=== PATIENT | female | born 1935 | race Caucasian/White ===

== ENCOUNTER 2023-06-09 09:48 | Emergency (ER) | payer MEDICARE, BC, SELFPAY ==
[2023-06-09] VITALS (8 sets, daily range): BP systolic 136–195; BP diastolic 67–88; PULSE 61–95; RESP 20; TEMP 37.3; O2SAT 95–98; BMI 22.5
[2023-06-09 10:45] LABS: Appearance Urine Clear (Clear); Bilirubin Urine Negative (Negative); Blood Urine Trace-lysed (Negative); Color Urine Yellow (Yellow); Glucose Urine Negative (Negative); Ketones Urine Negative (Negative); Leukocyte Esterase Urine Negative (Negative); Nitrite Urine Negative (Negative); Protein Urine Negative (Negative); Specific Gravity Urine 1.015 (1.000-1.030); Urobilinogen Urine 0.2 (0.2-1.0)
--- NOTE | 2023-06-09 10:59 | ED.GENADULT ---
HPI - General Adult General Chief complaint: Weakness Stated complaint: high BP, headache, shaky Time Seen by Provider: 06/09/23 10:45 History of Present Illness HPI narrative: This 87-year-old female comes in with complaints of occasional headache and feeling shaky with increased blood pressure. This is been happening over the past week or 2. She states that she does not feel right and has been under increased stress recently. She reports that her brother a couple weeks ago. She is also taking care of her who has an ankle fracture. She does report increased urinary frequency recently. She does not report any pain or fever. She takes lisinopril and arrives with initial blood pressure at 195/88. At the time of my visit this systolic value reduced to 136. Related Data Home Medications Medication Instructions Recorded Confirmed levothyroxine 100 mcg tablet 100 mcg PO DAILY 06/09/23 06/09/23 lisinopril 10 mg tablet 10 mg PO DAILY 06/09/23 06/09/23 omeprazole 20 mg capsule,delayed 20 mg PO DAILY 06/09/23 06/09/23 release pyridostigmine bromide .ROUTE 06/09/23 Previous Rx's Medication Instructions Recorded lorazepam 0.5 mg tablet (Ativan) 0.5 mg PO BID PRN #15 tabs 06/09/23 Allergies Allergy/AdvReac Type Severity Reaction Status Date / Time No Known Drug Allergies Allergy Verified 06/09/23 10:08 Review of Systems Status of ROS: Reports: 10 or more systems reviewed and unremarkable except as noted in History and below Narrative: Constitutional: No fevers, no weight gain or loss. Eyes: No discharge. No vision changes. HENT: No congestion, no sore throat, no ear pain. Cardiovascular: No chest pain, no palpitations. Respiratory: No shortness of breath, no wheezes, no cough. Gastrointestinal: No abdominal pain, no vomiting, no diarrhea. Genitourinary: No dysuria, no hematuria. Musculoskeletal: Normal range of motion. Skin: No rashes, no pruritis. Neurological: No dizziness, weakness, sensory change, speech change. Endo/Heme/Allergies: No bruising or bleeding. No polydipsia. Pysch: no suicidality, no anxiety, no insomnia. All other systems reviewed and are negative. Exam Narrative: Exam Narrative: Constitutional: Well-developed, well-nourished, no acute distress. HEENT: Normocephalic, atraumatic. Neck: Normal range of motion. Nontender. Supple. Heart: Regular. No murmurs. Normal rate. Intact distal pulses. Lungs: Clear to auscultation. No chest discomfort. No wheezes, rhonchi, or rales. Abdomen: Normal bowel sounds. Nontender. No rebound tenderness. Genitalia: Deferred. Back: No midline tenderness. Normal range of motion. Extremities: Normal range of motion. No injury. Skin: Intact. No rash. Warm. No erythema or pallor. Neurologic: No altered sensation. No weakness. Alert and oriented. Psychiatric: No suicidality. No anxiety or depression. No insomnia. Nursing notes and vitals signs are reviewed. Const: Vital Signs, click to edit/add: Vital Signs - 24 hr 06/09/23 10:04 06/09/23 10:45 06/09/23 11:00 Temperature 99.1 F Pulse Rate 68 Pulse Rate [Pulse Oximeter] 95 Respiratory Rate 20 Blood Pressure [Ri ght Upper Arm] 195/88 H 136/67 Pulse Oximetry 97 97 Oxygen Delivery Me thod Room Air Course Vital Signs Vital signs: Initial Vital Signs Temperature 99.1 F 06/09/23 10:04 Temperature Source Temporal Artery Scan 06/09/23 10:04 Pulse Rate 95 06/09/23 10:04 Respiratory Rate 20 06/09/23 10:04 Blood Pressure 195/88 H 06/09/23 10:04 Blood Pressure Mean 123 H 06/09/23 10:04 Blood Pressure Position Sitting 06/09/23 10:04 Pulse Oximetry 97 06/09/23 10:04 Oxygen Delivery Method Room Air 06/09/23 10:04 Vital Signs Temperature 99.1 F 06/09/23 10:04 Pulse Rate 95 06/09/23 10:04 Respiratory Rate 20 06/09/23 10:04 Blood Pressure 195/88 H 06/09/23 10:04 Pulse Oximetry 97 06/09/23 10:04 Oxygen Delivery Method Room Air 06/09/23 10:04 Temperature 99.1 F 06/09/23 10:04 Pulse Rate 68 06/09/23 11:00 Respiratory Rate 20 06/09/23 10:04 Blood Pressure 136/67 06/09/23 10:45 Pulse Oximetry 97 06/09/23 11:00 Oxygen Delivery Method Room Air 06/09/23 10:04 Medical Decision Making MDM Narrative Medical decision making narrative: This patient comes in with mild headache and some feeling of anxiety with shaking episodes. She has increased stress recently with the passing of her brother and extra care needed for her currently. She arrives with normal vital signs and lab results an EKG also are reassuring. She did have some increased urinary frequency last night but her urinalysis shows no sign of infection. It seems that this patient's symptoms are more related to anxiety and adjustment reaction with recent changes in her family relationships. She is okay to be discharged home. I did provide few tablets of Ativan that can be used if needed for anxiety symptoms. She understands that this is not a long-term solution for her symptoms. Lab Data Labs: Lab Results 06/09/23 06/09/23 Range/Units 10:30 11:11 WBC 7.98 (4.50-11.00) K/uL RBC 4.89 (4.00-5.20) m/uL Hgb 14.1 (12.0-16.0) gm/dL Hct 44.8 (33.0-51.0) % MCV 92 (80-100) fL MCH 29 (26-34) pg MCHC 32 (32-36) gm/dL RDW Coeff of Theodore 13.1 (11.5-15.5) % Plt Count 178 (140-440) K/uL Neut % (Auto) 46.2 (42.0-72.0) % Lymph % (Auto) 42.5 (20-44) % [place] % (Auto) 9.4 (0.0-11.0) % Eos % (Auto) 1.4 (0.0-7.0) % Baso % (Auto) 0.5 (0.0-3.0) % Neut # (Auto) 3.69 (1.7-7.0) K/uL Lymph # (Auto) 3.39 H (0.90-2.90) K/uL [place] # (Auto) 0.80 (0.00-0.90) K/UL Eos # (Auto) 0.11 (0.00-0.50) K/uL Baso # (Auto) 0.04 (0.00-0.30) K/uL Abs Immat Gran (auto) 0.00 (0.00-0.30) K/uL Imm/Tot Granulo (auto) 0.0 % Sodium 141 (135-149) mmol/L Potassium 4.2 (3.6-5.1) mmol/L Chloride 108 (96-114) mmol/L Carbon Dioxide 29 (20-32) mmol/L Anion Gap 4 L (7-15) mEq/L BUN 20 (7-30) mg/dL Creatinine 0.8 (0.5-1.5) mg/dL Estimated Creat Clear 37.01 Estimated GFR 72 ml/min Glucose 94 (60-115) mg/dL Calcium 9.1 (8.4-10.6) mg/dL Urine Color Yellow (Yellow) Urine Appearance Clear (Clear) Urine pH 7.0 (5.0-8.5) Ur Specific [place] 1.015 (1.000-1.030) Urine Protein Negative (Negative) Urine Glucose (UA) Negative (Negative) Urine Ketones Negative (Negative) Urine Blood Trace-lysed A (Negative) Urine Nitrite Negative (Negative) Urine Bilirubin Negative (Negative) Urine Urobilinogen 0.2 (0.2-1.0) Ur Leukocyte Esterase Negative (Negative) Urine RBC 2-5 A (0-2) Urine WBC 2-5 (0-5) Ur Squamous Epith Cells None (None-Few) Amorphous Sediment Few A (None) Urine Bacteria Few A (None) ECG Data Interpretation: Normal sinus rhythm. Rate is 77 beats per minute. There are no ST or T-wave abnormalities. Right bundle branch block. Discharge Plan Discharge Clinical Impression: Anxiety Patient Disposition: Home, Self-Care Condition: Stable Additional Instructions: Take medication as needed and directed. Continue current plans otherwise. Activity as tolerated. Follow up with MD return if worsening. Prescriptions: New lorazepam [Ativan] 0.5 mg tablet 0.5 mg PO BID PRNQty: 15 0RF No Action levothyroxine 100 mcg tablet 100 mcg PO DAILY lisinopril 10 mg tablet 10 mg PO DAILY omeprazole 20 mg capsule,delayed release(DR/EC) 20 mg PO DAILY pyridostigmine bromide .ROUTE Follow Up/Referrals: Starla Greene MD [Primary Care Provider] - Stand Alone Forms: [employer] Info Instructions
[2023-06-09 11:17] LABS: Basophils Absolute Auto 0.04 K/uL (0.00-0.30); Basophils Percent Auto 0.5 % (0.0-3.0); Eosinophils Absolute Auto 0.11 K/uL (0.00-0.50); Eosinophils Percent Auto 1.4 % (0.0-7.0); Hematocrit 44.8 % (33.0-51.0); Hemoglobin* 14.1 gm/dL (12.0-16.0); Lymphocytes Absolute Auto 3.39 K/uL (0.90-2.90); Lymphocytes Percent Auto 42.5 % (20-44); Mean Corpuscular HGB Conc 32 gm/dL (32-36); Mean Corpuscular Hemoglobin 29 pg (26-34); Mean Corpuscular Volume 92 fL (80-100); Monocytes Percent Auto 9.4 % (0.0-11.0); Neutrophils Absolute Auto 3.69 K/uL (1.7-7.0); Neutrophils Percent Auto 46.2 % (42.0-72.0); Platelet Count* 178 K/uL (140-440); RDW Coefficient of Variation % 13.1 % (11.5-15.5); Red Blood Count 4.89 m/uL (4.00-5.20); White Blood Count* 7.98 K/uL (4.50-11.00)
[2023-06-09 11:18] LABS: Amorphous Sediment Urine Few; Bacteria Urine Few
[2023-06-09 11:28] LABS: Chloride* 108 mmol/L (96-114); Sodium* 141 mmol/L (135-149)
[2023-06-09 11:29] LABS: Potassium* 4.2 mmol/L (3.6-5.1)
[2023-06-09 11:31] LABS: Anion Gap 4 mEq/L (7-15); Blood Urea Nitrogen* 20 mg/dL (7-30); Carbon Dioxide* 29 mmol/L (20-32); Creatinine* 0.8 mg/dL (0.5-1.5); Est. Creatinine Clearance* 37.01; Estimated Glomerular Filt Rate 72 ml/min
[2023-06-09 11:32] LABS: Calcium* 9.1 mg/dL (8.4-10.6); Glucose* 94 mg/dL (60-115)
[2023-06-09 11:42] LABS: Slide Review Reflex No
== END 2023-06-09 12:19 | disposition home or self-care (01) ==
PROVIDERS: Emergency Provider Emergency Medicine Emergency Medical Services; PCP Family Medicine
DX: F41.9 Anxiety disorder, unspecified (principal)
CPT/HCPCS: 36415; 80048; 81001; 85025; 87086; 93005; 99284

== ENCOUNTER 2023-10-07 14:54 | Inpatient (IN) | payer MEDICARE, BC, SELFPAY ==
[2023-10-07] VITALS (10 sets, daily range): BP systolic 132–177; BP diastolic 84–126; PULSE 90–133; RESP 18–20; TEMP 36.6–37.3; O2SAT 95–97; BMI 22.6; BMI 24.4
--- NOTE | 2023-10-07 15:33 | ED_ITS ---
HPI - General Adult General Chief complaint: Shortness of Breath/Dyspnea Stated complaint: Shortness of breath, high BP Time Seen by Provider: 10/07/23 15:32 History of Present Illness HPI narrative: Pt reports SOB w/ exertion since July. Contacted her clinic for appointment, but was routed to triage nurse that sent her here. Reports also having a cough at night that is new. Recently has had RIGHT foot swelling. Wears compression stockings to assist with this. 88-year-old woman presenting to the emergency department with concern of shortness of breath and elevated blood pressure. She is telling me this tearfully how just not feeling well has led to her having to cancel attending self a couple of family members. She is also primary caregiver for her who is been seen by myself actually here recently emergency department. Needing significant care at home. She has been having some nocturnal cough. Significant symptoms though is any exertion really is fatiguing. Becomes short of breath. She is also noting some right foot and ankle area swelling. Admittedly has had this before but not to this degree. Definitely more than the left side. Does seem to improve it sounds like overnight and then returns. She is not having chest pain. Not complaining of lightheadedness. Has noted that her blood pressures been elevated as well. I have an EKG showing atrial fibrillation prior to seeing Ms. Reza. This is diagnosis unfamiliar to her. Related Data Home Medications Medication Instructions Recorded Confirmed levothyroxine 100 mcg tablet 100 mcg PO DAILY 06/09/23 10/07/23 lisinopril 10 mg tablet 10 mg PO DAILY 06/09/23 10/07/23 omeprazole 20 mg capsule,delayed 20 mg PO DAILY 06/09/23 10/07/23 release acetaminophen 325 mg tablet 650 mg PO Q6H PRN 10/07/23 10/07/23 aspirin 81 mg capsule 81 mg PO DAILY 10/07/23 10/07/23 calcium carbonate 200 mg calcium 200 mg PO TID PRN 10/07/23 10/07/23 (500 mg) chewable tablet (Tums) calcium carbonate 500 mg calcium 500 mg PO DAILY 10/07/23 10/07/23 (1,250 mg) chewable tablet (Calcium 500) cholecalciferol (vitamin D3) 25 25 mcg PO DAILY 10/07/23 10/07/23 mcg (1,000 unit) capsule (Vitamin D3) multivitamin (One Daily 1 tab PO DAILY 10/07/23 10/07/23 Multivitamin tablet) omega 5-pma-nfj-fish oil 1,000 mg 1 cap PO DAILY 10/07/23 10/07/23 (120 mg-180 mg) capsule (Fish Oil) pyridostigmine bromide 60 mg tablet 60 mg PO 3XD 10/07/23 10/07/23 Allergies Allergy/AdvReac Type Severity Reaction Status Date / Time No Known Drug Allergies Allergy Verified 10/07/23 17:52 Review of Systems Status of ROS: Reports: 6 or more systems reviewed and unremarkable except as noted in History and below [facility] Medical History (Updated 10/08/23 @ 14:03 by Bentley Xiong MD) Subretinal hemorrhage ?H35.60 - Retinal hemorrhage, unspecified eye (ICD-10) 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 (ICD-10) Essential hypertension ?I10 - Essential (primary) hypertension (ICD-10) Myasthenia gravis ?G70.00 - Myasthenia gravis without (acute) exacerbation (ICD-10) Hypothyroidism ?E03.9 - Hypothyroidism, unspecified (ICD-10) Diverticulosis ?K57.90 - Diverticulosis of intestine, part unspecified, without perforation or abscess without bleeding (ICD-10) Surgical History (Updated 10/07/23 @ 21:00 by Belén Iniguez MD) H/O vitrectomy ?Z98.890 - Other specified postprocedural states (ICD-10) History of thymectomy ?Z90.89 - Acquired absence of other organs (ICD-10) Hx of appendectomy ?Z90.49 - Acquired absence of other specified parts of digestive tract (ICD- 10) H/O thyroidectomy ?E89.0 - Postprocedural hypothyroidism (ICD-10) Social History (Updated 10/07/23 @ 20:27 by Belén Iniguez MD) Narrative: Lives with of 60+ years (Maury, would be MDM if needed). Adult children, none in the area. Nonsmoker, rare ETOH use. Amenable to medication resuscitation, requests no CPR or intubation. What is your current living situation?: I presently have a place to live Problems where you live: no known problems Problems where you live details: N/A In the past 12 months, utilities in danger of being shut off: no In past 12 months, lack of transportation kept you from medical appts, meetings, work, or getting things needed for daily living: no In the past 12 mos, have been you worried that your food would run out before you had money to buy more?: never true In the past 12 mos, the food you bought just didn't last and you didn't have money to buy more?: never true Highest level of school completed/degree received: some college, no degree Smoking Status: Never smoker Second hand tobacco smoke exposure: Yes (history) How often do you have a drink containing alcohol: never How often do you have six or more drinks on one occasion: Never AUDIT-C Alcohol total score: 0 Non-prescribed substance use: denies use Caffeine: Yes Are you now , , , , never or living with a partner: Social isolation score (0-1 are the most socially isolated patients): 1 How often does anyone, including family, friends and others, physically hurt you : never How often does anyone, including family, friends and others, insult or talk down to you: never How often does anyone, including family, friends and others, threaten you with harm: never How often does anyone, including family, friends and others, scream or curse at you: never service: No Exam Narrative: Exam Narrative: I pleasant. As noted little tearful in recounting history. Breathing easily at this time. She is well-perfused peripherally. Lower extremities with 1+ pitting pretibial edema right little greater than the left. No pain though. Cranial nerves 2-12 intact. She is breathing easily at rest. Lungs with bibasilar crepitus left greater than right. Equal expansion excursion the chest. Abdomen is protuberant soft nontender. Heart is in a rapid and quite irregularly irregular rhythm. Const: Vital Signs, click to edit/add: Vital Signs - 24 hr 10/07/23 15:17 10/07/23 15:32 10/07/23 16:28 Temperature 98 F Pulse Rate [Left A pical] Pulse Rate [Pulse Oximeter] 133 H Respiratory Rate 18 Blood Pressure 156/97 H 177/126 H Blood Pressure [Ri ght Arm] Blood Pressure [Ri ght Upper Arm] 161/84 H Pulse Oximetry 97 Oxygen Delivery Me thod Room Air 10/07/23 17:00 10/07/23 18:00 Temperature 98.9 F Pulse Rate [Left A pical] 111 H Pulse Rate [Pulse Oximeter] 91 Respiratory Rate 20 Blood Pressure Blood Pressure [Ri ght Arm] 143/95 H Blood Pressure [Ri ght Upper Arm] Pulse Oximetry 97 Oxygen Delivery Me thod Room Air Documenting provider has reviewed patient's vital signs: yes Course Vital Signs Vital signs: Initial Vital Signs Temperature 98 F 10/07/23 15:17 Temperature Source Temporal Artery Scan 10/07/23 15:17 Pulse Rate 133 H 10/07/23 15:17 Pulse Rhythm Regularly Irregular 10/07/23 15:17 Pulse Strength 3+ Normal 10/07/23 15:17 Respiratory Rate 18 10/07/23 15:17 Blood Pressure 161/84 H 10/07/23 15:17 Blood Pressure Mean 109 H 10/07/23 15:17 Blood Pressure Position Sitting 10/07/23 15:17 Pulse Oximetry 97 10/07/23 15:17 Oxygen Delivery Method Room Air 10/07/23 15:17 Vital Signs Temperature 98 F 10/07/23 15:17 Pulse Rate 133 H 10/07/23 15:17 Respiratory Rate 18 10/07/23 15:17 Blood Pressure 161/84 H 10/07/23 15:17 Pulse Oximetry 97 10/07/23 15:17 Oxygen Delivery Method Room Air 10/07/23 15:17 Temperature 97.9 F 10/08/23 11:00 Pulse Rate 120 H 10/08/23 11:00 Respiratory Rate 18 10/08/23 11:00 Blood Pressure 144/87 H 10/08/23 11:00 Pulse Oximetry 97 10/08/23 11:00 Oxygen Delivery Method Room Air 10/08/23 11:00 Medications Administered Medications: Generic Name Dose Route Start Last Admin Trade Name Freq PRN Reason Stop Dose Admin Acetaminophen 975 mg 10/07/23 18:50 10/08/23 11:34 Acetaminophen 325 Mg Tablet PO 975 mg Q8H PRN Administration Apixaban 5 mg 10/07/23 21:00 10/08/23 08:02 Apixaban 5 Mg Tablet PO 5 mg BID JAMIE Administration Aspirin 81 mg 10/08/23 09:00 10/08/23 08:01 Aspirin 81 Mg Tablet Ec PO 81 mg DAILY JAMIE Administration Levothyroxine Sodium 100 mcg 10/08/23 06:00 10/08/23 06:46 Levothyroxine 100 Mcg Tablet PO 100 mcg 0600 JAMIE Administration Metoprolol Tartrate 2.5 mg 10/08/23 11:08 10/08/23 12:21 Metoprolol Tartrate 1 Mg/Ml Inj IVP 2.5 mg Q6H PRN Administration Omeprazole 20 mg 10/08/23 09:00 10/08/23 08:01 [address]epraz[address] PO 20 mg DAILY JAMIE Administration Pyridostigmine [place] 60 mg 10/08/23 08:00 10/08/23 12:49 Pyridostigmine [place] 60 Mg Tablet PO 60 mg TIDWM JAMIE Administration Sodium Chloride 5 ml 10/07/23 18:45 10/07/23 19:25 Sodium Chloride 0.9 % (Flush) 10 Ml Syringe IVF 5 ml .FLUSH PRN Administration Sodium Chloride 5 ml 10/07/23 21:00 10/08/23 09:13 Sodium Chloride 0.9 % (Flush) 10 Ml Syringe IVF Not Given BID JAMIE Discontinued Medications Generic Name Dose Route Start Last Admin Trade Name Freq PRN Reason Stop Dose Admin Diltiazem HCl 10 mg 10/07/23 16:33 10/07/23 16:50 Diltiazem 5 Mg/Ml Inj IVP 10/07/23 16:34 10 mg ONCE ONE Administration Diltiazem HCl 10 mg 10/07/23 18:41 10/07/23 19:24 Diltiazem 5 Mg/Ml Inj IVP 10/07/23 18:42 10 mg ONCE ONE Administration Diltiazem HCl 30 mg 10/08/23 01:00 10/08/23 06:46 Diltiazem 30 Mg Tablet PO 30 mg Q6H JAMIE Administration Diltiazem HCl 120 mg 10/08/23 11:09 10/08/23 11:35 Diltiazem 120 Mg Cap.Er.24h PO 10/08/23 11:10 120 mg ONCE ONE Administration Furosemide 10 mg 10/07/23 20:37 10/07/23 21:03 Furosemide 10 Mg/Ml Inj IVP 10/07/23 20:38 10 mg ONCE ONE Administration Furosemide 20 mg 10/08/23 11:06 10/08/23 11:35 Furosemide 10 Mg/Ml Inj IVP 10/08/23 11:07 20 mg ONCE ONE Administration Sodium Chloride 500 mls @ 500 mls/hr 10/07/23 16:07 10/07/23 17:47 0.9 % Sodium Chloride 500 Ml IV 10/07/23 17:06 Infused .Q1H ONE Infusion Pyridostigmine [place] 60 mg 10/07/23 21:00 10/07/23 19:54 Pyridostigmine [place] 60 Mg Tablet PO 60 mg TID JAMIE Administration Medical Decision Making MDM Narrative Medical decision making narrative: EKG reviewed by me shows atrial fibrillation with RVR. This appears to be of new discovery. Will give low-dose fluid bolus. Will need to use this cautiously. Symptoms seemed to have begun at least as far back as mid July. Would not be a candidate for cardioversion. Will slow this rate a little bit with some diltiazem. Will need chest x-ray. Ultrasound least the right lower extremity looking for thrombus embolus. I would anticipate anticoagulation. I would anticipate admission. Laboratory assessment otherwise is pending. Diltiazem 10 mg a slowed rate 91 briefly but come back up to 1 teens. Look to be in AFib still on monitor. Still remains comfortable at rest blood pressures are still elevated. Chest x-ray has bilateral pleural effusions my read. Study:?XRay Chest 1V-10/07/2023 4:24:10 PM Ordering Physician:?DR. XIONG Final Report: Indication: Shortness of breath, high blood pressure Technique: Portable frontal chest Comparison: PA/lateral chest series December 10, 2022 Findings: The heart is enlarged with moderate-sized bilateral pleural effusions, prominent interstitial markings and vascular congestion. There is no pneumothorax ill- defined focal consolidation. The trachea is midline. Stable postsurgical changes. There are no acute osseous findings. Impression: Findings are compatible with congestive heart failure. Ultrasound as discussed with assistant to the ceo, of the right lower extremity only with Thurman's cyst. Pending formal overread. Have discussed with hospitalist for admission. Accepting. As requested will be scanning chest yet also for PE. Lab Data Lab results reviewed: Yes I reviewed the patient's lab results Labs: Lab Results 10/07/23 Range/Units 15:38 WBC 9.07 (4.50-11.00) K/uL RBC 4.65 (4.00-5.20) m/uL Hgb 13.5 (12.0-16.0) gm/dL Hct 42.4 (33.0-51.0) % MCV 91 (80-100) fL MCH 29 (26-34) pg MCHC 32 (32-36) gm/dL RDW Coeff of Theodore 13.4 (11.5-15.5) % Plt Count 210 (140-440) K/uL Neut % (Auto) 41.0 L (42.0-72.0) % Lymph % (Auto) 46.6 H (20-44) % [place] % (Auto) 9.3 (0.0-11.0) % Eos % (Auto) 2.5 (0.0-7.0) % Baso % (Auto) 0.4 (0.0-3.0) % Neut # (Auto) 3.70 (1.7-7.0) K/uL Lymph # (Auto) 4.20 H (0.90-2.90) K/uL [place] # (Auto) 0.80 (0.00-0.90) K/UL Eos # (Auto) 0.23 (0.00-0.50) K/uL Baso # (Auto) 0.04 (0.00-0.30) K/uL Abs Immat Gran (auto) 0.02 (0.00-0.30) K/uL Imm/Tot Granulo (auto) 0.2 % D-Dimer Quant (PE/DVT) 1.10 H (0.00-0.50) ug/ml Sodium 137 (135-149) mmol/L Potassium 4.4 (3.6-5.1) mmol/L Chloride 109 (96-114) mmol/L Carbon Dioxide 25 (20-32) mmol/L Anion Gap 3 L (7-15) mEq/L BUN 24 (7-30) mg/dL Creatinine 0.8 (0.5-1.5) mg/dL Estimated Creat Clear 37.80 Estimated GFR 72 ml/min Glucose 107 (60-115) mg/dL Calcium 8.8 (8.4-10.6) mg/dL Troponin I < 0.01 L (0.01-0.04) ng/mL NT-Pro-B Natriuret Pep 2900 pg/mL TSH 5.450 H (0.270-4.20) uIU/mL ECG Data Attestation: I personally reviewed and interpreted this ECG as follows: (Atrial fibrillation with RVR rate 136) Critical Care Time Critical Care Time Critical Care Time: Yes Attestation: The patient required my highest level preparedness to intervene emergently and I personally spent this critical care time directly and personally managing the patient. This critical care time included: Obtaining a history; Examining the patient; Pulse oximetry; Ordering and reviewing of studies; Arranging urgent treatment with development of a management plan; Evaluation of patients response to treatment; Frequent reassessment discussions with other providers. This critical care time was performed to assess and manage the high probability of imminent life-threatening deterioration that could result in multiorgan failure. It was exclusive of separate billable procedures and treating other patients and teaching time. Total Critical Care Time in Minutes: 70 Discharge Plan Discharge Clinical Impression: CHF (congestive heart failure), Atrial fibrillation with rapid ventricular response Patient Disposition: Admitted As Inpatient Condition: Stable
--- NOTE | 2023-10-07 16:07 | XR_ITS ---
Patient: CHILANGO WORTHY Facility:?[facility] Patient ID:?[id number] Site Patient ID:?[id number]. Site :?[id number] Study:?XRay-Chest 1V-10/07/2023 4:24:10 PM Ordering Physician:?DR. DE LA ROSA Final Report: Indication: Shortness of breath, high blood pressure Technique: Portable frontal chest Comparison: PA/lateral chest series December 10, 2022 Findings: The heart is enlarged with moderate-sized bilateral pleural effusions, prominent interstitial markings and vascular congestion. There is no pneumothorax ill- defined focal consolidation. The trachea is midline. Stable postsurgical changes. There are no acute osseous findings. Impression: Findings are compatible with congestive heart failure. Dictated by Rui Randall MD @ 10/07/2023 4:53:49 PM Signed by:?Rui Randall MD @10/07/2023 4:53:49 PM (Electronic Signature)
--- NOTE | 2023-10-07 16:07 | US_ITS ---
Patient: CHILANGO WORTHY Facility:?[facility] Patient ID:?[id number] Site Patient ID:?[id number]. Site :?[id number] Study:?US-Extremity Right DVT-10/07/2023 5:23:34 PM Ordering Physician:?ED Final Report: INDICATION: Leg pain and swelling TECHNIQUE: Ultrasound venous duplex lower right extremity. Compression venous exam was performed using davis-scale, color Doppler, and spectral Doppler imaging. COMPARISON: None. FINDINGS: Sonographic imaging demonstrates the right common femoral, deep femoral, superficial femoral, popliteal, posterior tibial and greater saphenous and the contralateral left common femoral veins to be fully compressible with normal color Doppler blood flow. There is a Thurman`s cyst measuring 3.5 centimeters. IMPRESSION: Normal right lower extremity venous ultrasound, no sign of deep venous thrombosis. Thurman`s cyst measuring 3.5 centimeters. Dictated by Farhad Sierra MD @ 10/07/2023 5:51:02 PM Signed by:?Farhad Sierra MD @10/07/2023 5:51:02 PM (Electronic Signature)
[2023-10-07 16:24] LABS: Basophils Absolute Auto 0.04 K/uL (0.00-0.30); Basophils Percent Auto 0.4 % (0.0-3.0); Eosinophils Absolute Auto 0.23 K/uL (0.00-0.50); Eosinophils Percent Auto 2.5 % (0.0-7.0); Hematocrit 42.4 % (33.0-51.0); Hemoglobin* 13.5 gm/dL (12.0-16.0); Immature Granulocytes Abs Auto 0.02 K/uL (0.00-0.30); Immature Granulocytes Pct Auto 0.2 %; Lymphocytes Percent Auto 46.6 % (20-44); Mean Corpuscular HGB Conc 32 gm/dL (32-36); Mean Corpuscular Hemoglobin 29 pg (26-34); Mean Corpuscular Volume 91 fL (80-100); Monocytes Percent Auto 9.3 % (0.0-11.0); Platelet Count* 210 K/uL (140-440); RDW Coefficient of Variation % 13.4 % (11.5-15.5); Red Blood Count 4.65 m/uL (4.00-5.20); White Blood Count* 9.07 K/uL (4.50-11.00)
[2023-10-07 16:27] LABS: Slide Review Reflex No
[2023-10-07 16:33] LABS: Chloride* 109 mmol/L (96-114); Sodium* 137 mmol/L (135-149)
[2023-10-07 16:34] LABS: Potassium* 4.4 mmol/L (3.6-5.1)
[2023-10-07 16:36] LABS: Creatinine* 0.8 mg/dL (0.5-1.5); Estimated Glomerular Filt Rate 72 ml/min
[2023-10-07 16:37] LABS: Anion Gap 3 mEq/L (7-15); Blood Urea Nitrogen* 24 mg/dL (7-30); Calcium* 8.8 mg/dL (8.4-10.6); Carbon Dioxide* 25 mmol/L (20-32); Glucose* 107 mg/dL (60-115)
[2023-10-07] MEDS: 0.9 % SODIUM CHLORIDE 500 ML 500 ML IV (16:41)
[2023-10-07 16:47] LABS: NT Pro B Type NatriureticPept* 2900 pg/mL
[2023-10-07] MEDS: dilTIAZem 5 MG/ML inj 10 MG IVP ×2 (16:50→19:24)
--- NOTE | 2023-10-07 17:14 | CT_ITS ---
Patient: CHILANGO WORTHY Facility:?[facility] Patient ID:?[id number] Site Patient ID:?[id number]. Site :?[id number] Study:?CT-Chest PE PROTOCOL W/ 95CC IOSVUE 370-10/07/2023 5:51:18 PM Ordering Physician:KATHI Final Report: Indication: NEW A-FIB, HEART FAILURE Technique: CTA chest, pulmonary embolism protocol, utilizing 95 mL Isovue 370 Comparison: None Findings: Cardiomegaly. No significant pericardial effusion. Coronary artery calcifications. The thoracic aorta and pulmonary artery are normal in caliber. No pulmonary embolism. Minimal biapical pleural/parenchymal scarring. Moderate right and small volume left pleural effusions with adjacent atelectatic lung at the lung bases. Otherwise, no focal airspace consolidation. Faint mosaic attenuation with interlobular septal thickening in the lung bases, suggestive of edema. The airways are patent. No pathologically enlarged lymph nodes throughout the thorax. The visualized upper abdomen is without acute process. Small to moderate hiatal hernia. Likely large cysts in the bilateral kidneys, incompletely characterized on this exam. No acute fracture or malalignment. No suspicious osseous lesions. Prior median sternotomy. Impression: 1. No pulmonary embolism. 2. Cardiomegaly. 3. Some interlobular septal thickening with mosaic attenuation in the bilateral lung bases, likely secondary to pulmonary edema with a moderate right and small volume left pleural effusion. Please note that all CT scans at this facility use dose modulation, iterative reconstruction, and/or weight-based dosing when appropriate to reduce radiation dose to as low as reasonably achievable. Dictated by Ld Miller MD @ 10/07/2023 6:19:42 PM Signed by:?Ld Miller MD @10/07/2023 6:19:42 PM (Electronic Signature)
--- NOTE | 2023-10-07 17:57 | P.IMHP_ITS ---
Hospitalist- H&P: HPI History of Present Illness Date Seen: 10/07/23 Chief complaint: Shortness of breath, high BP Narrative: Cele Reza is a 88 year old female who presented to the ED today at the behest of her PCP's triage nurse. Cele has felt poorly since July, with primary symptoms of fatigue and HORVATH. She has not noted any significant chest pain or orthopnea. + LE edema, R>L. She was too dyspneic to travel to her [place] last week. Given length of symptoms, she called her PCP's office today to make an appointment, and was directed to the ED. ER Course and Findings: - a fib with RVR on initial EKG, no hypoxia - heart rate decreased from 130s --> 110s after IV Diltiazem - no hypotension - no DVT on RLE ultrasound - evidence of fluid overload on CXR - cardiomegaly, no PE, pulmonary edema with small B pleural effusions on CTA of chest Upon arrival to the floor, Cele is feeling significantly better with her lower heart rate. She is amenable to initiating anticoagulation for her new atrial fibrillation diagnosis. Medical histories updated below. PCP is Dr. Greene locally. 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 (ICD-10) Essential hypertension ?I10 - Essential (primary) hypertension (ICD-10) Myasthenia gravis ?G70.00 - Myasthenia gravis without (acute) exacerbation (ICD-10) Hypothyroidism ?E03.9 - Hypothyroidism, unspecified (ICD-10) Diverticulosis ?K57.90 - Diverticulosis of intestine, part unspecified, without perforation or abscess without bleeding (ICD-10) Surgical History (Updated 10/07/23 @ 21:00 by Belén Iniguez MD) H/O vitrectomy ?Z98.890 - Other specified postprocedural states (ICD-10) History of thymectomy ?Z90.89 - Acquired absence of other organs (ICD-10) Hx of appendectomy ?Z90.49 - Acquired absence of other specified parts of digestive tract (ICD- 10) H/O thyroidectomy ?E89.0 - Postprocedural hypothyroidism (ICD-10) Social History (Updated 10/07/23 @ 20:27 by Belén Iniguez MD) Narrative: Lives with of 60+ years (Maury, would be MDM if needed). Adult children, none in the area. Nonsmoker, rare ETOH use. Amenable to medication resuscitation, requests no CPR or intubation. What is your current living situation?: I presently have a place to live Problems where you live: no known problems Problems where you live details: N/A In the past 12 months, utilities in danger of being shut off: no In past 12 months, lack of transportation kept you from medical appts, meetings, work, or getting things needed for daily living: no In the past 12 mos, have been you worried that your food would run out before you had money to buy more?: never true In the past 12 mos, the food you bought just didn't last and you didn't have money to buy more?: never true Highest level of school completed/degree received: some college, no degree Smoking Status: Never smoker Second hand tobacco smoke exposure: Yes (history) How often do you have a drink containing alcohol: never How often do you have six or more drinks on one occasion: Never AUDIT-C Alcohol total score: 0 Non-prescribed substance use: denies use Caffeine: Yes Are you now , , , , never or living with a partner: Social isolation score (0-1 are the most socially isolated patients): 1 How often does anyone, including family, friends and others, physically hurt you : never How often does anyone, including family, friends and others, insult or talk down to you: never How often does anyone, including family, friends and others, threaten you with harm: never How often does anyone, including family, friends and others, scream or curse at you: never service: No Meds Home Medications and Allergies Home Medications Medication Instructions Recorded Confirmed Type levothyroxine 100 mcg tablet 100 mcg PO DAILY 06/09/23 10/07/23 History lisinopril 10 mg tablet 10 mg PO DAILY 06/09/23 10/07/23 History omeprazole 20 mg capsule,delayed 20 mg PO DAILY 06/09/23 10/07/23 History release acetaminophen 325 mg tablet 650 mg PO Q6H PRN 10/07/23 10/07/23 History aspirin 81 mg capsule 81 mg PO DAILY 10/07/23 10/07/23 History calcium carbonate 200 mg calcium 200 mg PO TID PRN 10/07/23 10/07/23 History (500 mg) chewable tablet (Tums) calcium carbonate 500 mg calcium 500 mg PO DAILY 10/07/23 10/07/23 History (1,250 mg) chewable tablet (Calcium 500) cholecalciferol (vitamin D3) 25 25 mcg PO DAILY 10/07/23 10/07/23 History mcg (1,000 unit) capsule (Vitamin D3) multivitamin (One Daily 1 tab PO DAILY 10/07/23 10/07/23 History Multivitamin tablet) omega 5-ver-uno-fish oil 1,000 mg 1 cap PO DAILY 10/07/23 10/07/23 History (120 mg-180 mg) capsule (Fish Oil) pyridostigmine bromide 60 mg tablet 60 mg PO 3XD 10/07/23 10/07/23 History Allergies Allergy/AdvReac Type Severity Reaction Status Date / Time No Known Drug Allergies Allergy Verified 10/07/23 17:52 Exam Narrative: Exam Narrative: GEN: Alert and oriented, sitting comfortably in bedside chair, nontoxic and appears younger than stated age HEENT: EOMIs bilaterally, no scleral icterus CV: Irregular rhythm, rate in the 110s during my exam, no concerning mumurs R: Decreased bibasilar breath sounds with fine crackles Ext: wwp, + 1-2 edema BLE Skin: No concerning skin lesions or rashes on exposed skin Neuro: No focal deficits or resting tremor, gait not observed Psych: Appropriate Const: Vital Signs, click to edit/add: Vital Signs - 24 hr 10/07/23 15:17 10/07/23 15:32 10/07/23 16:28 Temperature 98 F Pulse Rate [Pulse Oximeter] 133 H Respiratory Rate 18 Blood Pressure 156/97 H 177/126 H Blood Pressure [Ri ght Upper Arm] 161/84 H Pulse Oximetry 97 Oxygen Delivery Me thod Room Air 10/07/23 17:00 Temperature Pulse Rate [Pulse Oximeter] 91 Respiratory Rate Blood Pressure Blood Pressure [Ri ght Upper Arm] Pulse Oximetry Oxygen Delivery Me thod Hospitalist - H&P: Result Labs Labs: Short CBC 10/07/23 Range/Units 15:38 WBC 9.07 (4.50-11.00) K/uL Hgb 13.5 (12.0-16.0) gm/dL Hct 42.4 (33.0-51.0) % Plt Count 210 (140-440) K/uL BMP 10/07/23 15:38 Sodium 137 Potassium 4.4 Chloride 109 Carbon Dioxide 25 BUN 24 Creatinine 0.8 Glucose 107 Calcium 8.8 Assessment and Plan Assessment and plan (1) Atrial fibrillation with rapid ventricular response: Problem comment: - new finding, likely present since July given symptoms - CHADsVASC score of 4, amenable to initiating Apixaban for stroke prevention - improve HR with Diltiazem; will continue this for now and follow HR on telemetry - TTE ordered Status: Acute (2) Essential hypertension: Problem comment: - hold home dose of Lisinopril as she receives Diltiazem and Lasix Status: Acute (3) Pulmonary edema: Problem comment: - 1 dose of Lasix on admission, follow Is/Os/daily weights - repeat TTE ordered (most recent one from 2022 with results below): Final Impressions: 1. Normal left ventricular size, mildly increased wall thickness, normal global systolic function, calculated EF of 69 %. 2. Right ventricular cavity size is mildly enlarged, global systolic RV function is normal. 3. Mild biatrial enlargement 4. The aortic valve is trileaflet and sclerotic, no stenosis and mild regurgitation. 5. The mitral valve is normal, mild mitral regurgitation. 6. Moderate tricuspid regurgitation with normal estimated right sided cardiac pressures. 7. The bubble study was negative for the detection of an intracardiac shunt. Status: Acute (4) Myasthenia gravis: Problem comment: - Quiescent. On thrice daily Pyridostigmine, will continue this Status: Acute
[2023-10-07] MEDS: SODIUM CHLORIDE 0.9 % (FLUSH) 10 ML SYRINGE 5 ML IVF ×2 (19:25→21:04)
[2023-10-07] MEDS: pyRIDostigmine bromide 60 MG TABLET PO (19:54)
[2023-10-07] MEDS: FUROSEMIDE 10 MG/ML inj IVP (21:03)
[2023-10-07] MEDS: APIXABAN 5 MG TABLET PO (21:04)
[2023-10-07] MEDS: ACETAMINOPHEN 325 MG TABLET 975 MG PO (22:29)
[2023-10-08] MEDS: dilTIAZem 30 MG TABLET PO ×2 (01:05→06:46)
[2023-10-08 01:08] VITALS: BP 138/88; PULSE 115; RESP 18; TEMP 36.9; O2SAT 94
--- NOTE | 2023-10-08 05:40 | PC.NURSE ---
[id number]: Patient friendly and talkative. A&Ox3. Independent in room. SOB w/activity. Remained in a-fib during shift w/HR fluctuating between 85-115. Denies CP. Denies N/V.
[2023-10-08] MEDS: LEVOTHYROXINE 100 MCG TABLET PO (06:46)
[2023-10-08 07:00] VITALS: BP 116/67; PULSE 100; PULSE 103; RESP 16; TEMP 36.9; O2SAT 96
[2023-10-08] MEDS: OMEPRAZOLE 20 MG CAPSULE DR PO (08:01)
[2023-10-08] MEDS: ASPIRIN 81 MG TABLET EC PO (08:01)
[2023-10-08] MEDS: APIXABAN 5 MG TABLET PO ×2 (08:02→20:11)
[2023-10-08] MEDS: pyRIDostigmine bromide 60 MG TABLET PO ×3 (09:06→17:48)
[2023-10-08 09:09] LABS: Troponin I* < 0.01 ng/mL (0.01-0.04)
[2023-10-08 09:10] LABS: Troponin I* < 0.01 ng/mL (0.01-0.04)
[2023-10-08 11:00] VITALS: BP 144/87; PULSE 120; RESP 18; TEMP 36.6; O2SAT 97
[2023-10-08] MEDS: ACETAMINOPHEN 325 MG TABLET 975 MG PO ×2 (11:34→20:11)
[2023-10-08] MEDS: dilTIAZem 120 MG CAP.ER.24H PO (11:35)
[2023-10-08] MEDS: FUROSEMIDE 10 MG/ML inj 20 MG IVP (11:35)
[2023-10-08] MEDS: METOPROLOL TARTRATE 1 MG/ML inj 2.5 MG IVP (12:21)
[2023-10-08 15:00] VITALS: BP 147/95; PULSE 100; RESP 18; TEMP 36.8; O2SAT 95; O2SAT 96
--- NOTE | 2023-10-08 15:41 | PM.IMPN1 ---
Progress Note: A&P Assessment and plan (1) Atrial fibrillation with rapid ventricular response: Problem details: - new finding, likely present since July given symptoms - CHADsVASC score of 4, amenable to initiating Apixaban for stroke prevention - improve HR with Diltiazem; will continue this for now and follow HR on telemetry - TTE on 10/08/2023: Normal LV chamber size, wall thickness, global systolic function, with EF 67%. Mildly enlarged right ventricle with borderline decreased function. Severe left atrial enlargement. 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 Mild aortic regurgitation. Moderate to severe mitral regurgitation. Moderate tricuspid regurgitation. Mild pulmonary hypertension with estimated right ventricular systolic pressures of 28 mmHg plus right atrial pressure. Dilated inferior vena cava. Overall the patient's mitral regurgitation and tricuspid regurgitation are worsen they were in November of 2022 when she last had an echocardiogram. - 10/08/2023: Changed schedule diltiazem 30 mg q.6 hours to diltiazem CD 120 mg once daily. Added as needed metoprolol tartrate 5 mg IV q.6 hours for heart rate consistently greater than 100 beats per minute. Consider dose adjustment of the diltiazem and metoprolol as warranted and as her mean arterial pressure allows. May need to consider digoxin or amiodarone. Discuss referral to Cardiology with her. Introduced the idea of ablation therapy. Continue with apixaban anticoagulation. Status: Acute (2) Essential hypertension: Problem details: - hold home dose of Lisinopril as she receives Diltiazem and Lasix. - continue to modify doses of diltiazem and metoprolol as her pressures allow. Status: Acute (3) Pulmonary edema: Problem details: - 1 dose of Lasix on admission, follow Is/Os/daily weights - repeat TTE ordered (from November 2022 with results below): 1. Normal left ventricular size, mildly increased wall thickness, normal global systolic function, calculated EF of 69 %. 2. Right ventricular cavity size is mildly enlarged, global systolic RV function is normal. 3. Mild biatrial enlargement 4. The aortic valve is trileaflet and sclerotic, no stenosis and mild regurgitation. 5. The mitral valve is normal, mild mitral regurgitation. 6. Moderate tricuspid regurgitation with normal estimated right sided cardiac pressures. 7. The bubble study was negative for the detection of an intracardiac shunt. - TTE on 10/08/2023: Normal LV chamber size, wall thickness, global systolic function, with EF 67%. Mildly enlarged right ventricle with borderline decreased function. Severe left atrial enlargement. 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 Mild aortic regurgitation. Moderate to severe mitral regurgitation. Moderate tricuspid regurgitation. Mild pulmonary hypertension with estimated right ventricular systolic pressures of 28 mmHg plus right atrial pressure. Dilated inferior vena cava. Overall the patient's mitral regurgitation and tricuspid regurgitation are worsen they were in November of 2022 when she last had an echocardiogram. - continue with loop diuretic adjustments. Continue with rate control efforts with negative chronotropic agents diltiazem and metoprolol. Status: Acute (4) Myasthenia gravis: Problem details: - Quiescent. On thrice daily Pyridostigmine, will continue this Status: Acute (5) Valvular cardiomyopathy: Problem details: - moderate to severe mitral regurgitation now compared to moderate mitral regurgitation November 2022 - moderate tricuspid regurgitation now compared to mild tricuspid regurgitation November 2022 - will warrant cardiology referral Status: Acute (6) Cor triatriatum maximiliano: Problem details: - TTE on 10/08/2023: Normal LV chamber size, wall thickness, global systolic function, with EF 67%. Mildly enlarged right ventricle with borderline decreased function. Severe left atrial enlargement. 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 Mild aortic regurgitation. Moderate to severe mitral regurgitation. Moderate tricuspid regurgitation. Mild pulmonary hypertension with estimated right ventricular systolic pressures of 28 mmHg plus right atrial pressure. Dilated inferior vena cava. Overall the patient's mitral regurgitation and tricuspid regurgitation are worsen they were in November of 2022 when she last had an echocardiogram. - warrants cardiology referral Status: Acute (7) CHF (congestive heart failure): Status: Acute Plan 1. Reviewed impression with patient 2. Encourage patient to work with her adoption social worker to discuss options to help her and her in their home 3. Patient agreeable with above stated plans and recommendations Time Spent With Patient Total time spent: 45 minutes Subjective Date Seen: 10/08/23 Interval history: Admission history of present illness: 88 year old female who presented to the ED today at the behest of her PCP's triage nurse. Cele has felt poorly since July, with primary symptoms of fatigue and HORVATH. She has not noted any significant chest pain or orthopnea. + LE edema, R>L. She was too dyspneic to travel to her [facility] last week. Given length of symptoms, she called her PCP's office today to make an appointment, and was directed to the ED. Notes decreased sense of dyspnea at rest. Continues to have dyspnea with exertion. Generally feels a little improved today compared to when she 1st was admitted. Acknowledges she has disregarded caring for herself in the context of attending to her 's needs. Intends on working with family and friends to address her 's needs. Exam Narrative: Exam Narrative: No acute distress. Alert and oriented to self, place, time, situation. From the, articulate, cooperative. Sitting upright she has jugular venous distension long term upper neck. She has hepatojugular reflux up to the angle of the jaw in the sitting upright position. Still has bilateral lower extremity edema. Lungs clear to auscultation with decreased breath sounds in bases. Heart tones are chaotic and tachycardic. Soft murmur across precordium. Abdomen with active bowel sounds, soft, nontender. No focal motor neurologic deficits. Const: Vital Signs, click to edit/add: Vital Signs - 24 hr 10/07/23 16:28 10/07/23 17:00 10/07/23 18:00 Temperature 98.9 F Pulse Rate Pulse Rate [Left A pical] 111 H Pulse Rate [Pulse Oximeter] 91 Pulse Rate [Right Pulse Oximeter] Respiratory Rate 20 Blood Pressure 177/126 H Blood Pressure [Ri ght Arm] 143/95 H Pulse Oximetry 97 Oxygen Delivery Me thod Room Air 10/07/23 19:00 10/07/23 19:46 10/07/23 20:25 Temperature 99.2 F Pulse Rate 120 H Pulse Rate [Left A pical] 122 H Pulse Rate [Pulse Oximeter] Pulse Rate [Right Pulse Oximeter] Respiratory Rate 20 20 Blood Pressure Blood Pressure [Ri ght Arm] 145/96 H Pulse Oximetry 96 Oxygen Delivery Me thod Room Air 10/07/23 22:25 10/07/23 22:38 10/07/23 22:38 Temperature 98.6 F Pulse Rate 90 Pulse Rate [Left A pical] 93 Pulse Rate [Pulse Oximeter] Pulse Rate [Right Pulse Oximeter] Respiratory Rate 20 20 Blood Pressure Blood Pressure [Ri ght Arm] 132/90 H Pulse Oximetry 95 95 Oxygen Delivery Me thod Room Air Room Air 10/08/23 01:08 10/08/23 07:00 10/08/23 07:00 Temperature 98.4 F 98.5 F Pulse Rate 103 H Pulse Rate [Left A pical] 115 H Pulse Rate [Pulse Oximeter] Pulse Rate [Right Pulse Oximeter] 100 Respiratory Rate 18 16 Blood Pressure Blood Pressure [Ri ght Arm] 138/88 116/67 Pulse Oximetry 94 96 Oxygen Delivery Co thod Room Air Room Air 10/08/23 07:00 10/08/23 11:00 Temperature 97.9 F Pulse Rate Pulse Rate [Left A pical] Pulse Rate [Pulse Oximeter] Pulse Rate [Right Pulse Oximeter] 120 H Respiratory Rate 16 18 Blood Pressure Blood Pressure [Ri ght Arm] 144/87 H Pulse Oximetry 96 97 Oxygen Delivery Co thod Room Air Room Air Labs Labs: Laboratory Results - last 24 hr 10/07/23 10/08/23 10/08/23 15:38 08:06 08:25 WBC 9.07 RBC 4.65 Hgb 13.5 Hct 42.4 MCV 91 MCH 29 MCHC 32 RDW Coeff of Theodore 13.4 Plt Count 210 Neut % (Auto) 41.0 L Lymph % (Auto) 46.6 H Jackson % (Auto) 9.3 Eos % (Auto) 2.5 Baso % (Auto) 0.4 Neut # (Auto) 3.70 Lymph # (Auto) 4.20 H Jackson # (Auto) 0.80 Eos # (Auto) 0.23 Baso # (Auto) 0.04 Abs Immat Gran (auto) 0.02 Imm/Tot Granulo (auto) 0.2 D-Dimer Quant (PE/DVT) 1.10 H Sodium 137 Potassium 4.4 Chloride 109 Carbon Dioxide 25 Anion Gap 3 L BUN 24 Creatinine 0.8 Estimated Creat Clear 37.80 Estimated GFR 72 Glucose 107 Calcium 8.8 Troponin I < 0.01 L < 0.01 L NT-Pro-B Natriuret Pep 2900 TSH 5.450 H Lab Acknowledgement Test Added
--- NOTE | 2023-10-08 16:32 | PC.SOCIAL ---
Discharge planning: Met with pt regarding d/c plan. Pt is hoping to return home with her and explore the option of hiring additional assistance for at home. Also discussed options for assisted living which pt states she is interested in but she is concerned her will not want to move. Provided pt written information on these options. Pt requested home health care social worker come back for a second visit when her is present tomorrow afternoon as she wants him to be part of this discussion. traffic worker to follow up as needed.
[2023-10-08 19:00] VITALS: BP 147/95; PULSE 100; RESP 18; TEMP 36.6; O2SAT 94
--- NOTE | 2023-10-08 19:00 | PC.NURSE ---
[id number]: The patient is pleasant and cooperative. VS on RA. The patient remains on tele.. afib w/ NVR and RVR throughout the day. PO dilt, and IV metoprolol were given this afternoon per Dr Vazquez's orders. PRN metoprolol availible for HR >100 sustained for 10 minutes or more. The patient reports mild SOB when she is up ambulating.. she states that it is a lot better than it was prior to coming here. 20mg of IV lasix was also given. Calls appropriately. Reported a moderate headache this afternoon and PRN Tylenol was given with adequate relief. Char MEJIA BSN
[2023-10-08] MEDS: SODIUM CHLORIDE 0.9 % (FLUSH) 10 ML SYRINGE 5 ML IVF (20:12)
[2023-10-08 23:00] VITALS: BP 112/21; PULSE 100; PULSE 69; PULSE 88; RESP 13; RESP 18; TEMP 36.9; O2SAT 93; O2SAT 94
[2023-10-09] VITALS (11 sets, daily range): BP systolic 109–160; BP diastolic 69–93; PULSE 72–126; RESP 16–20; TEMP 36.4–36.6; O2SAT 91–95
[2023-10-09] MEDS: LEVOTHYROXINE 100 MCG TABLET PO (05:46)
--- NOTE | 2023-10-09 05:51 | PC.NURSE ---
End of shift: Patient pleasant and cooperative with cares. Alert and oriented. Shortness of breath reported with exertion but resolves at rest. BLE edema +1 pitting. Independent with ambulation, patient does use walker PRN when feeling short of breath but does not use at baseline. Patient reports difficulty sleeping after 0330, she is feeling anxious over her coming to discuss options of assisted living with social organization professor but is also joyful to see him as she is his primary caregiver at home.
[2023-10-09 06:25] LABS: Hemoglobin* 13.1 gm/dL (12.0-16.0)
[2023-10-09 06:42] LABS: Albumin* 3.6 g/dL (3.3-5.0); Chloride* 111 mmol/L (96-114); Sodium* 137 mmol/L (135-149)
[2023-10-09 06:45] LABS: Anion Gap 1 mEq/L (7-15); Blood Urea Nitrogen* 23 mg/dL (7-30); Carbon Dioxide* 25 mmol/L (20-32); Creatinine* 0.9 mg/dL (0.5-1.5); Estimated Glomerular Filt Rate 62 ml/min; Glucose* 98 mg/dL (60-115)
[2023-10-09 06:46] LABS: Calcium* 8.4 mg/dL (8.4-10.6); Magnesium* 1.9 mg/dL (1.5-2.6)
[2023-10-09] MEDS: METOPROLOL TARTRATE 1 MG/ML inj 2.5 MG IVP (07:17)
[2023-10-09] MEDS: FUROSEMIDE 20 MG TABLET PO ×2 (07:49→09:38)
[2023-10-09] MEDS: pyRIDostigmine bromide 60 MG TABLET PO ×3 (07:50→17:17)
[2023-10-09] MEDS: ASPIRIN 81 MG TABLET EC PO (09:11)
[2023-10-09] MEDS: dilTIAZem 120 MG CAP.ER.24H PO ×2 (09:11→09:38)
[2023-10-09] MEDS: APIXABAN 5 MG TABLET PO ×2 (09:11→20:55)
[2023-10-09] MEDS: OMEPRAZOLE 20 MG CAPSULE DR PO (09:11)
[2023-10-09] MEDS: CALCIUM CARBONATE 500 MG CHEW PO (09:18)
[2023-10-09] MEDS: SODIUM CHLORIDE 0.9 % (FLUSH) 10 ML SYRINGE 5 ML IVF ×2 (09:33→20:56)
--- NOTE | 2023-10-09 15:55 | PM.IMPN1 ---
Progress Note: A&P Assessment and plan (1) Atrial fibrillation with rapid ventricular response: Problem details: - new finding, likely present since July given symptoms - CHADsVASC score of 4, amenable to initiating Apixaban for stroke prevention - improve HR with Diltiazem; will continue this for now and follow HR on telemetry - TTE on 10/08/2023: Normal LV chamber size, wall thickness, global systolic function, with EF 67%. Mildly enlarged right ventricle with borderline decreased function. Severe left atrial enlargement. 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 Mild aortic regurgitation. Moderate to severe mitral regurgitation. Moderate tricuspid regurgitation. Mild pulmonary hypertension with estimated right ventricular systolic pressures of 28 mmHg plus right atrial pressure. Dilated inferior vena cava. Overall the patient's mitral regurgitation and tricuspid regurgitation are worsen they were in November of 2022 when she last had an echocardiogram. - 10/08/2023: Changed schedule diltiazem 30 mg q.6 hours to diltiazem CD 120 mg once daily. Added as needed metoprolol tartrate 5 mg IV q.6 hours for heart rate consistently greater than 100 beats per minute. Consider dose adjustment of the diltiazem and metoprolol as warranted and as her mean arterial pressure allows. May need to consider digoxin or amiodarone. Discuss referral to Cardiology with her. Introduced the idea of ablation therapy. Continue with apixaban anticoagulation. - 10/09/2023: Increase diltiazem CD dose to 240 mg daily. Heart rate much better controlled on this. Patient, (Maury), her power of ip technology transactions attorney for health, Luis, and I believe Luis's , had a long discussion this afternoon. We discuss energy conservation principles. Indicated that patient is not to be walking down to her basement to do her laundry hereafter until she is told that she can safely do so at some future time. Working with Physical therapy, Occupational therapy, and case management social worker to assist with recommendations regarding short-term and long-term support for patient and her including the possibility of home care as well as assisted living. They are agreeable. If patient continues to do well it is possible patient may be in a position to be discharged from the hospital as early as tomorrow. Status: Acute (2) Essential hypertension: Problem details: - hold home dose of Lisinopril as she receives Diltiazem and Lasix. - continue to modify doses of diltiazem and metoprolol as her pressures allow. Status: Acute (3) Pulmonary edema: Problem details: - 1 dose of Lasix on admission, follow Is/Os/daily weights - repeat TTE ordered (from November 2022 with results below): 1. Normal left ventricular size, mildly increased wall thickness, normal global systolic function, calculated EF of 69 %. 2. Right ventricular cavity size is mildly enlarged, global systolic RV function is normal. 3. Mild biatrial enlargement 4. The aortic valve is trileaflet and sclerotic, no stenosis and mild regurgitation. 5. The mitral valve is normal, mild mitral regurgitation. 6. Moderate tricuspid regurgitation with normal estimated right sided cardiac pressures. 7. The bubble study was negative for the detection of an intracardiac shunt. - TTE on 10/08/2023: Normal LV chamber size, wall thickness, global systolic function, with EF 67%. Mildly enlarged right ventricle with borderline decreased function. Severe left atrial enlargement. 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 Mild aortic regurgitation. Moderate to severe mitral regurgitation. Moderate tricuspid regurgitation. Mild pulmonary hypertension with estimated right ventricular systolic pressures of 28 mmHg plus right atrial pressure. Dilated inferior vena cava. Overall the patient's mitral regurgitation and tricuspid regurgitation are worsen they were in November of 2022 when she last had an echocardiogram. - continue with loop diuretic adjustments. Continue with rate control efforts with negative chronotropic agents diltiazem and metoprolol. Status: Acute (4) Myasthenia gravis: Problem details: - Quiescent. On thrice daily Pyridostigmine, will continue this Status: Acute (5) Valvular cardiomyopathy: Problem details: - moderate to severe mitral regurgitation now compared to moderate mitral regurgitation November 2022 - moderate tricuspid regurgitation now compared to mild tricuspid regurgitation November 2022 - will warrant cardiology referral Status: Acute (6) Cor triatriatum maximiliano: Problem details: - TTE on 10/08/2023: Normal LV chamber size, wall thickness, global systolic function, with EF 67%. Mildly enlarged right ventricle with borderline decreased function. Severe left atrial enlargement. 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 Mild aortic regurgitation. Moderate to severe mitral regurgitation. Moderate tricuspid regurgitation. Mild pulmonary hypertension with estimated right ventricular systolic pressures of 28 mmHg plus right atrial pressure. Dilated inferior vena cava. Overall the patient's mitral regurgitation and tricuspid regurgitation are worsen they were in November of 2022 when she last had an echocardiogram. - warrants cardiology referral Status: Acute (7) CHF (congestive heart failure): Problem details: - chronic diastolic heart failure in association with valvular cardiomyopathy and possible cor triatriatum Maximiliano. - continue with adjustment of diltiazem for rate control and blood pressure control as well as furosemide diuretic for now. Continue with monitoring of labs. Status: Acute Plan 1. Patient, , and their support are all in agreement with above stated plans and recommendations. Time Spent With Patient Total time spent: 60 minutes Subjective Date Seen: 10/09/23 Interval history: Admission history of present illness: 88 year old female who presented to the ED today at the behest of her PCP's triage nurse. Cele has felt poorly since July, with primary symptoms of fatigue and HORVATH. She has not noted any significant chest pain or orthopnea. + LE edema, R>L. She was too dyspneic to travel to [place] last week. Given length of symptoms, she called her PCP's office today to make an appointment, and was directed to the ED. Hospital day 3. Notes dyspnea at rest is virtually resolved. Continues to have dyspnea with exertion but this too is improving. Tolerating increased activities today even walking up 4 steps and back down, but does have to rest. Denies syncope or near-syncope. Denies nausea vomiting. Denies chest heaviness or pressure, tightness or pain. Denies palpitations or chest fluttering. Acknowledges she has disregarded caring for herself in the context of attending to her 's needs. Intends on working with family and friends to address her 's needs. Exam Narrative: Exam Narrative: Examine her in her hospital room. Appears comfortable and in no acute distress. Vision and hearing are normal. Alert, oriented to self, place, time, situation. Friendly, cooperative, articulate. Still has JVD while sitting upright as well as hepatojugular reflux. Decreased breath sounds in the bases otherwise lungs are now clear. No CVA tenderness. Heart tones are chaotic with normal S1-S2. Systolic murmur unchanged. No gallop or rub. PMI not laterally displaced. Abdomen with active bowel sounds, soft, nontender. Independent transfer, station, gait. No tremor, asterixis, or ataxia. Cranial nerves 3-12 are grossly normal. Skin is intact. Trace pitting edema pretibially bilaterally. This morning's weight is 67.4 kg. Yesterday morning her weight was 67.9 kg. On admission her weight was 68.9 kg. Const: Vital Signs, click to edit/add: Vital Signs - 24 hr 10/08/23 19:00 10/08/23 23:00 10/08/23 23:00 Temperature 97.9 F Pulse Rate 69 Pulse Rate [Right Pulse Oximeter] 100 100 Respiratory Rate 18 18 Blood Pressure [Ri ght Arm] 147/95 H Pulse Oximetry 94 Oxygen Delivery Me thod Room Air 10/08/23 23:00 10/08/23 23:00 10/09/23 03:00 Temperature 98.4 F 97.6 F Pulse Rate Pulse Rate [Right Pulse Oximeter] 88 91 Respiratory Rate 18 13 18 Blood Pressure [Ri ght Arm] 112/21 L 141/83 H Pulse Oximetry 94 93 92 Oxygen Delivery Sd thod Room Air Room Air Room Air 10/09/23 07:27 10/09/23 07:27 10/09/23 08:11 Temperature 97.9 F Pulse Rate 124 H Pulse Rate [Right Pulse Oximeter] 122 H 126 H Respiratory Rate 16 Blood Pressure [Ri ght Arm] 160/93 H Pulse Oximetry 95 Oxygen Delivery Sd thod Room Air 10/09/23 08:11 10/09/23 09:16 10/09/23 11:05 Temperature 97.8 F Pulse Rate Pulse Rate [Right Pulse Oximeter] 109 H 94 Respiratory Rate 16 20 Blood Pressure [Ri ght Arm] 128/80 124/71 Pulse Oximetry 95 94 Oxygen Delivery Sd thod Room Air Room Air 10/09/23 15:39 10/09/23 15:39 10/09/23 15:43 Temperature 97.9 F Pulse Rate 72 Pulse Rate [Right Pulse Oximeter] 72 Respiratory Rate 18 18 Blood Pressure [Ri ght Arm] 109/69 Pulse Oximetry 91 91 Oxygen Delivery Sd thod Room Air Room Air Labs Labs: Laboratory Results - last 24 hr 10/09/23 06:04 Hgb 13.1 Sodium 137 Potassium 4.0 Chloride 111 Carbon Dioxide 25 Anion Gap 1 L BUN 23 Creatinine 0.9 Estimated Creat Clear 37.80 Estimated GFR 62 Glucose 98 Calcium 8.4 Phosphorus 4.0 Magnesium 1.9 Albumin 3.6
--- NOTE | 2023-10-09 16:23 | PC.SOCIAL ---
Discharge planning: At pt's request, met with pt, and friends in room regarding d/c plans. Pt states she is appreciative of all the information provided yesterday and is planning to contact [employer] after she returns home to discuss hiring assistance. Answered questions on these services and options for hiring help in the community. Pt is interested in signing up for meals on wheels prior to discharge for herself and her if there is currently space on their route. family preservation worker to follow up tomorrow to find out if there is availability and assist pt in signing up if there is availability. family preservation worker to follow up as needed.
--- NOTE | 2023-10-09 17:38 | PC.NURSE ---
Shift Summary: Patient pleasant and cooperative. Up independently, HR and BP elevated this morning around 0720, PRN metoprolol given see SEP. MD made med changes, see SEP, changes have been tolerated well. Patient HR down to 70-90s this afternoon, BP WNL. Patient with +1 pitting edema in ankle/calf, c/o SOB with exertion this morning which has improved throughout day. Has been up in street walking x2. Denies chest pain. Regular diet tolerated well, good appetite. In recliner for meals.
[2023-10-09] MEDS: ACETAMINOPHEN 325 MG TABLET 975 MG PO (20:59)
[2023-10-10 02:45] VITALS: BP 131/90; PULSE 88; RESP 16; TEMP 36.5; O2SAT 94
[2023-10-10] MEDS: LEVOTHYROXINE 100 MCG TABLET PO (06:08)
[2023-10-10 06:22] LABS: Hemoglobin* 13.9 gm/dL (12.0-16.0)
[2023-10-10] MEDS: SODIUM CHLORIDE 0.9 % (FLUSH) 10 ML SYRINGE 5 ML IVF (06:29)
[2023-10-10] MEDS: METOPROLOL TARTRATE 1 MG/ML inj 2.5 MG IVP (06:29)
[2023-10-10 06:35] LABS: Albumin* 3.6 g/dL (3.3-5.0); Chloride* 111 mmol/L (96-114); Potassium* 4.2 mmol/L (3.6-5.1); Sodium* 138 mmol/L (135-149)
[2023-10-10 06:38] LABS: Anion Gap -1 mEq/L (7-15); Blood Urea Nitrogen* 19 mg/dL (7-30); Calcium* 8.6 mg/dL (8.4-10.6); Carbon Dioxide* 28 mmol/L (20-32); Creatinine* 0.9 mg/dL (0.5-1.5); Estimated Glomerular Filt Rate 62 ml/min; Glucose* 91 mg/dL (60-115); Phosphorus* 3.9 mg/dL (2.5-4.5)
[2023-10-10 06:39] LABS: Magnesium* 1.9 mg/dL (1.5-2.6)
--- NOTE | 2023-10-10 07:01 | PC.NURSE ---
Pt alert and oriented x3. Afebrile. Pt denies pain, chest pain, pain, SOB, and N/V.?Pt is up ind in room, voiding, and tolerating regular diet. Pt?s tele is showing atrial fabulation with normal ventricular rhythm.?Around 0615 pt?heart rate was 100-130 bpm for consistent 10 mins, pt denied pain but reported her heart felt ?uncomfortable?, PRN metoprolol given with relief. Pt slept throughout most of night.?
[2023-10-10 08:10] VITALS: PULSE 120
[2023-10-10 08:21] VITALS: BP 137/95; PULSE 103; RESP 16; TEMP 36.5; O2SAT 94
[2023-10-10] MEDS: pyRIDostigmine bromide 60 MG TABLET PO (08:49)
[2023-10-10] MEDS: FUROSEMIDE 40 MG TABLET PO (08:49)
[2023-10-10] MEDS: APIXABAN 5 MG TABLET PO (08:49)
[2023-10-10] MEDS: OMEPRAZOLE 20 MG CAPSULE DR PO (08:49)
[2023-10-10] MEDS: dilTIAZem 240 MG CAP (CD) PO (08:49)
[2023-10-10] MEDS: ASPIRIN 81 MG TABLET EC PO (08:49)
--- NOTE | 2023-10-10 09:41 | PC.SOCIAL ---
Addendum entered by GISSELLE Parson 10/10/23 12:28: Discharge planning: Pt was only interested in signing up for Meals on Wheels for herself and will add her later, if needed. Pt stated that her and her are both very light eaters, so may be able to just share one of the meals. terrazzo worker apprentice gave the pt information on who to contact in the kitchen if she wants to start getting a meal for her . Social work to follow-up as needed. Addendum entered by GISSELLE Parson 10/10/23 12:21: Discharge planning: terrazzo worker apprentice was able to get the pt opened for [facility] program to start on Friday. OT will be scheduling a home safety evaluation with her via phone later today after she discharges. Pt was thankful for the assistance. Social work to follow-up as needed. Original Note: Discharge planning: terrazzo worker apprentice left a message with the kitchen staff to ask about getting the pt added to the Meals on Wheels program. Social work to follow-up as needed.
--- NOTE | 2023-10-10 14:39 | PM.DS1 ---
DS: Providers Provider Date Seen: 10/10/23 Date of admission: 10/07/23 18:45 Primary care physician: Starla Greene MD Admitting Clinician: Belén Iniguez MD Consults: 10/07/23 18:50 Consult to Physical Therapy [CONS] Routine Comment: Reason(s) for PT Consult:: Evaluate and Treat Any Restrictions?:: No Restrictions Consult to Banking Specialist [CONS] Routine Comment: Reason for Consult:: Discharge Planning Needs 10/07/23 18:52 Consult to Occupational Therapy [CONS] Routine Comment: Reason(s) for OT Consult:: Evaluate and Treat Any Restrictions?:: No Restrictions 10/09/23 09:50 Consult to Occupational Therapy [CONS] Routine Comment: Reason(s) for OT Consult:: Evaluate and Treat Any Restrictions?:: No Restrictions Consult to Physical Therapy [CONS] Routine Comment: Reason(s) for PT Consult:: Evaluate and Treat Any Restrictions?:: No Restrictions Attending Physician on discharge: Sean Pickens MD Date of Discharge: 10/10/23 DS: Diagnosis Discharge Diagnosis (1) Atrial fibrillation with rapid ventricular response: Status: Acute Problem details: - new finding, likely present since July given symptoms - CHADsVASC score of 4, amenable to initiating Apixaban for stroke prevention - improve HR with Diltiazem; will continue this for now and follow HR on telemetry - TTE on 10/08/2023: Normal LV chamber size, wall thickness, global systolic function, with EF 67%. Mildly enlarged right ventricle with borderline decreased function. Severe left atrial enlargement. 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 Mild aortic regurgitation. Moderate to severe mitral regurgitation. Moderate tricuspid regurgitation. Mild pulmonary hypertension with estimated right ventricular systolic pressures of 28 mmHg plus right atrial pressure. Dilated inferior vena cava. Overall the patient's mitral regurgitation and tricuspid regurgitation are worsen they were in November of 2022 when she last had an echocardiogram. - 10/08/2023: Changed schedule diltiazem 30 mg q.6 hours to diltiazem CD 120 mg once daily. Added as needed metoprolol tartrate 5 mg IV q.6 hours for heart rate consistently greater than 100 beats per minute. Consider dose adjustment of the diltiazem and metoprolol as warranted and as her mean arterial pressure allows. May need to consider digoxin or amiodarone. Discuss referral to Cardiology with her. Introduced the idea of ablation therapy. Continue with apixaban anticoagulation. - 10/09/2023: Increase diltiazem CD dose to 240 mg daily. Heart rate much better controlled on this. Patient, (Maury), her power of estate planning attorney for health, Luis, and I believe Luis's , had a long discussion this afternoon. We discuss energy conservation principles. Indicated that patient is not to be walking down to her basement to do her laundry hereafter until she is told that she can safely do so at some future time. Working with Physical therapy, Occupational therapy, and social service coordinator to assist with recommendations regarding short-term and long-term support for patient and her including the possibility of home care as well as assisted living. They are agreeable. If patient continues to do well it is possible patient may be in a position to be discharged from the hospital as early as tomorrow. - 10/10/2023: Increased dose of diltiazem CD to 240 mg in the morning and 120 mg in the evening due to an episode of paroxysmal AFib RVR this morning. Added metoprolol tartrate 25 mg tab once daily p.r.n. for paroxysmal AFib RVR, instructing patient to seek emergent help if condition is not resolved within 1 hour of taking this medicine. 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 Mildly enlarged right ventricle with borderline decreased function. Severe left atrial enlargement. 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 Mild aortic regurgitation. Moderate to severe mitral regurgitation. Moderate tricuspid regurgitation. Mild pulmonary hypertension with estimated right ventricular systolic pressures of 28 mmHg plus right atrial pressure. Dilated inferior vena cava. Overall the patient's mitral regurgitation and tricuspid regurgitation are worsen they were in November of 2022 when she last had an echocardiogram. 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 - continue with adjustment of diltiazem for rate control and blood pressure control as well as furosemide diuretic for now. Continue with monitoring of labs. (4) Valvular cardiomyopathy: Status: Acute Problem details: - moderate to severe mitral regurgitation now compared to moderate mitral regurgitation November 2022 - moderate tricuspid regurgitation now compared to mild tricuspid regurgitation November 2022 - will warrant cardiology referral (5) Cor triatriatum maximiliano: Status: Acute Problem details: - TTE on 10/08/2023: Normal LV chamber size, wall thickness, global systolic function, with EF 67%. Mildly enlarged right ventricle with borderline decreased function. Severe left atrial enlargement. 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 Mild aortic regurgitation. Moderate to severe mitral regurgitation. Moderate tricuspid regurgitation. Mild pulmonary hypertension with estimated right ventricular systolic pressures of 28 mmHg plus right atrial pressure. Dilated inferior vena cava. Overall the patient's mitral regurgitation and tricuspid regurgitation are worsen they were in November of 2022 when she last had an echocardiogram. - warrants cardiology referral (6) Chronic anticoagulation: Status: Acute (7) Essential hypertension: Status: Acute Problem details: - hold home dose of Lisinopril as she receives Diltiazem and Lasix. - continue to modify doses of diltiazem and metoprolol as her pressures allow. (8) Pulmonary edema: Status: Acute Problem details: - 1 dose of Lasix on admission, follow Is/Os/daily weights - repeat TTE ordered (from November 2022 with results below): 1. Normal left ventricular size, mildly increased wall thickness, normal global systolic function, calculated EF of 69 %. 2. Right ventricular cavity size is mildly enlarged, global systolic RV function is normal. 3. Mild biatrial enlargement 4. The aortic valve is trileaflet and sclerotic, no stenosis and mild regurgitation. 5. The mitral valve is normal, mild mitral regurgitation. 6. Moderate tricuspid regurgitation with normal estimated right sided cardiac pressures. 7. The bubble study was negative for the detection of an intracardiac shunt. - TTE on 10/08/2023: Normal LV chamber size, wall thickness, global systolic function, with EF 67%. Mildly enlarged right ventricle with borderline decreased function. Severe left atrial enlargement. 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 Mild aortic regurgitation. Moderate to severe mitral regurgitation. Moderate tricuspid regurgitation. Mild pulmonary hypertension with estimated right ventricular systolic pressures of 28 mmHg plus right atrial pressure. Dilated inferior vena cava. Overall the patient's mitral regurgitation and tricuspid regurgitation are worsen they were in November of 2022 when she last had an echocardiogram. - continue with loop diuretic adjustments. Continue with rate control efforts with negative chronotropic agents diltiazem and metoprolol. (9) Myasthenia gravis: Status: Acute Problem details: - Quiescent. On thrice daily Pyridostigmine, will continue this DS: Summary Hospital Course Hospital Course: 88-year-old woman presented with several week history of increasing dyspnea with exertion. Found to be in AFib RVR and acute on chronic heart failure. Initiated rate control with immediate acting diltiazem. Later switched to diltiazem CD with p.r.n. metoprolol tartrate. Increased dose of diltiazem. Started her on anticoagulant with apixaban 5 mg twice daily. Status at Discharge Functional status at discharge: independent ambulation Time Spent with Patient Time attestation: Total time spent providing and/or coordinating discharge services: Time spent: Greater than 30 minutes Specific discharge activities: Discussion with patient and friend regarding her health status, plans of care, including follow-up with her primary care physician and urged her to consider seeing solderer dipper which she was hesitant to do. Exam Narrative: Exam Narrative: Examine her in her hospital room. Appears comfortable and in no acute distress. Vision and hearing are normal. Alert, oriented to self, place, time, situation. Friendly, cooperative, articulate. Still has JVD while sitting upright as well as hepatojugular reflux, but is improving. Decreased breath sounds in the bases otherwise lungs are now clear. No CVA tenderness. Heart tones are chaotic with normal S1-S2. Systolic murmur unchanged. No gallop or rub. PMI not laterally displaced. Abdomen with active bowel sounds, soft, nontender. Independent transfer, station, gait. No tremor, asterixis, or ataxia. Cranial nerves 3-12 are grossly normal. Skin is intact. Trace pitting edema pretibially bilaterally. Her weight weight is 67.2 kg on 10/10/2023 and 67.4 on 10/09/2023. On 10/08/2023 her weight was 67.9 kg. On admission, 10/07/2023, her weight was 68.9 kg. Const: Vital Signs, click to edit/add: Vital Signs - 24 hr 10/09/23 15:39 10/09/23 15:39 10/09/23 15:43 Temperature 97.9 F Pulse Rate 72 Pulse Rate [Right Pulse Oximeter] 72 Respiratory Rate 18 18 Blood Pressure [Ri ght Arm] 109/69 Pulse Oximetry 91 91 Oxygen Delivery Me thod Room Air Room Air 10/09/23 19:30 10/09/23 21:00 10/09/23 21:17 Temperature 97.7 F 97.7 F Pulse Rate Pulse Rate [Right Pulse Oximeter] 94 94 Respiratory Rate 18 16 16 Blood Pressure [Ri ght Arm] 121/79 124/76 Pulse Oximetry 94 94 94 Oxygen Delivery Me thod Room Air Room Air Room Air 10/09/23 21:24 10/10/23 02:45 10/10/23 08:10 Temperature 97.7 F Pulse Rate 80 120 H Pulse Rate [Right Pulse Oximeter] 88 Respiratory Rate 16 Blood Pressure [Ri ght Arm] 131/90 H Pulse Oximetry 94 Oxygen Delivery Me thod Room Air 10/10/23 08:21 10/10/23 08:21 Temperature 97.7 F Pulse Rate Pulse Rate [Right Pulse Oximeter] 103 H Respiratory Rate 16 Blood Pressure [Ri ght Arm] 137/95 H Pulse Oximetry 94 94 Oxygen Delivery Me thod Room Air Room Air Documenting provider has reviewed patient's vital signs: yes DS: Data Data Completed and Pending Labs on day of discharge: Labs from last 24 hours 10/10/23 06:08 Hgb 13.9 Sodium 138 Potassium 4.2 Chloride 111 Carbon Dioxide 28 Anion Gap -1 L BUN 19 Creatinine 0.9 Estimated Creat Clear 37.80 Estimated GFR 62 Glucose 91 Calcium 8.6 Phosphorus 3.9 Magnesium 1.9 Albumin 3.6 Discharge Plan Discharge Disposition: Home, Self-Care Date of Admission: 10/07/23 18:45 Attending Provider on Discharge: Sean Pickens Primary Care Provider: Starla Greene Condition: Stable Anticipated Discharge Date/Time: 10/10/23 11:30 Discharge Medications: New furosemide 40 mg Tablet 40 mg PO DAILY@0800 30 Days Qty: 30 2RF diltiazem HCl 240 mg Capsule,Extended Release 24hr 240 mg PO DAILY 30 Days Qty: 30 2RF Eliquis 5 mg Tablet 5 mg PO BID 30 Days Qty: 60 2RF diltiazem HCl 120 mg capsule,extended release 24hr 120 mg PO QHS Qty: 30 2RF metoprolol tartrate 25 mg tablet 25 mg PO DAILY PRN (Reason: paroxysmal tachycardia) Qty: 10 2RF Rx Instructions: If resting heart rate is greater than 100 beats per minute for more than 5 minutes. Seek additional emergent help if not responding after 1 hour. Continued levothyroxine 100 mcg tablet 100 mcg PO DAILY omeprazole 20 mg capsule,delayed release(DR/EC) 20 mg PO DAILY pyridostigmine bromide 60 mg tablet 60 mg PO 3XD calcium carbonate [Calcium 500] 500 mg calcium (1,250 mg) tablet,chewable 500 mg PO DAILY cholecalciferol (vitamin D3) [Vitamin D3] 25 mcg (1,000 unit) capsule 25 mcg PO DAILY calcium carbonate [Tums] 200 mg calcium (500 mg) tablet,chewable 200 mg PO TID PRN acetaminophen 325 mg tablet 650 mg PO Q6H PRN multivitamin [One Daily Multivitamin] Tablet 1 tab PO DAILY Discontinued lisinopril 10 mg tablet 10 mg PO DAILY aspirin 81 mg capsule 81 mg PO DAILY omega [id number]-[id number]-zku-fish oil [Fish Oil] 1,000 mg (120 mg-180 mg) capsule 1 cap PO DAILY Discharge Orders: Discharge Order (Routine); Ordered 10/10/23 Ordered By: Sean Pickens Patient Education: Metoprolol (By mouth), Diltiazem (By mouth), Furosemide (By mouth), Apixaban (By mouth), Heart Failure (DC), A-fib (Atrial Fibrillation) (DC), Mitral Regurgitation (DC), Low-Sodium Diet (DC), Tricuspid Regurgitation (DC) Activity Level: Activity as Tolerated Activity Detail: Utilize energy conservation techniques. Discharge Diet: 2 gm Sodium Diet Detail: No added salt to your food once it is on your plate. Follow Up Appointments: Starla Greene MD [Primary Care Provider] - 10/14/23 11:10 am ([facility] for follow-up regarding A Fib RVR, new heart failure, valvular cardiomyopathy, consider cardiology referral-with pre-visit ECG, basic metabolic panel, and magnesium.) Forms: [facility] Info Instructions
== END 2023-10-10 11:56 | disposition home or self-care (01) | DRG 291 ==
LOC: ED 17:38 → MEDSURG 17:51
PROVIDERS: Internal Medicine; Admitting Provider Family Medicine; Emergency Provider Family Medicine; PCP Family Medicine; Visit Provider Family Medicine
DX: I11.0 Hypertensive heart disease with heart failure (principal); I50.33 Acute on chronic diastolic (congestive) heart failure; Q24.2 Cor triatriatum; I43 Cardiomyopathy in diseases classified elsewhere; I48.0 Paroxysmal atrial fibrillation; I08.3 Combined rheumatic disorders of mitral, aortic and tricuspid valves; G70.00 Myasthenia gravis without (acute) exacerbation; I27.20 Pulmonary hypertension, unspecified; E03.9 Hypothyroidism, unspecified
CPT/HCPCS: 36415; 71045; 71275; 80048; 80069; 83735; 83880; 84443; 84484; 85018; 85025; 85379; 93005; 93306; 93971; 97112; 97116; 97161; 97165; 97530; 97535; 99284; 99285; 99291; A9270; J1940; J7030; Q9967

== ENCOUNTER 2023-10-10 13:43 | Outpatient (RCR) | payer SELFPAY | END 2024-09-28 07:28 | disposition home or self-care (01) | LOC: MOW 13:43 | PROVIDERS: PCP Family Medicine; Visit Provider Internal Medicine | DX: Z76.0 Encounter for issue of repeat prescription (principal) | CPT/HCPCS: S5170 ==

== ENCOUNTER 2023-10-14 14:11 | Inpatient (IN) | payer MEDICARE, BC, SELFPAY ==
[2023-10-14 14:40] VITALS: BP 120/72; PULSE 95; RESP 20; TEMP 36.9; O2SAT 95; BMI 24.8
[2023-10-14 15:00] VITALS: PULSE 95; RESP 20
[2023-10-14] MEDS: DIGOXIN 250 MCG TABLET PO (16:13)
[2023-10-14] MEDS: AMIODARONE 200 MG TABLET 400 MG PO (16:25)
--- NOTE | 2023-10-14 16:41 | P.IMHP_ITS ---
Hospitalist- H&P: HPI History of Present Illness Date Seen: 10/14/23 Chief complaint: Direct admit Narrative: Cele Reza is a 88 year old female admitted to the hospital from the clinic for symptomatic atrial fibrillation with rapid ventricular response. Patient was hospitalized here last week for the same problem. With that hospitalization she was started on furosemide 40 mg daily, diltiazem 240 mg in the morning and 120 mg in the evening, Eliquis 5 mg b.i.d. and p.r.n. metoprolol tartrate 25 mg p.r.n. for rapid heartbeat. She has not taken the metoprolol but has otherwise been compliant with the other medications. She had an echocardiogram which showed normal left ventricle with ejection fraction of 67%, severely enlarged left atrium, moderate to severe mitral regurgitation and moderate to severe tricuspid regurgitation. Since discharge she reports ongoing symptoms of exertional dyspnea, episodic palpitations, lower chest pressure. She also reports occasional feeling of discomfort on the right side of her neck . Symptoms are more prominent with activity. She feels like her activity is quite limited due to her ongoing symptoms. She was seen in clinic today and referred here for improved rate control and on the advice of Cardiology initiation of amiodarone. Cardiology recommended amiodarone load of 400 mg twice daily for a week followed by 400 mg daily for week and then 200 mg daily pending cardioversion. Also digoxin 0.125 mg daily and metoprolol 25 mg twice daily scheduled for rate control. She has not had other symptoms of illness. 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 (ICD-10) Essential hypertension ?I10 - Essential (primary) hypertension (ICD-10) Myasthenia gravis ?G70.00 - Myasthenia gravis without (acute) exacerbation (ICD-10) Hypothyroidism ?E03.9 - Hypothyroidism, unspecified (ICD-10) Diverticulosis ?K57.90 - Diverticulosis of intestine, part unspecified, without perforation or abscess without bleeding (ICD-10) Surgical History H/O vitrectomy ?Z98.890 - Other specified postprocedural states (ICD-10) History of thymectomy ?Z90.89 - Acquired absence of other organs (ICD-10) Hx of appendectomy ?Z90.49 - Acquired absence of other specified parts of digestive tract (ICD- 10) H/O thyroidectomy ?E89.0 - Postprocedural hypothyroidism (ICD-10) Social History (Updated 10/14/23 @ 16:48 by Shiraz Darden MD) Narrative: Lives with , Maury, of 60+ year. He is healthcare power of sports attorney. Secondary healthcare power of sports attorney is her son Jose. Code status is DNR. She does not smoke. She does not drink alcohol What is your current living situation?: I presently have a place to live Problems where you live: no known problems Problems where you live details: N/A In the past 12 months, utilities in danger of being shut off: no In past 12 months, lack of transportation kept you from medical appts, meetings, work, or getting things needed for daily living: no In the past 12 mos, have been you worried that your food would run out before you had money to buy more?: never true In the past 12 mos, the food you bought just didn't last and you didn't have money to buy more?: never true Highest level of school completed/degree received: some college, no degree Smoking Status: Never smoker Do you use any of these nicotine containing products: None Second hand tobacco smoke exposure: Yes (history) How often do you have a drink containing alcohol: never How often do you have six or more drinks on one occasion: Never AUDIT-C Alcohol total score: 0 Non-prescribed substance use: denies use Caffeine: Yes (coffee daily) Are you now , , , , never or living with a partner: Social isolation score (0-1 are the most socially isolated patients): 1 How often does anyone, including family, friends and others, physically hurt you : never How often does anyone, including family, friends and others, insult or talk down to you: never How often does anyone, including family, friends and others, threaten you with harm: never How often does anyone, including family, friends and others, scream or curse at you: never service: No Meds Home Medications and Allergies Home Medications Medication Instructions Recorded Confirmed Type levothyroxine 100 mcg tablet 100 mcg PO DAILY 06/09/23 10/14/23 History omeprazole 20 mg capsule,delayed 20 mg PO DAILY 06/09/23 10/14/23 History release acetaminophen 325 mg tablet 650 mg PO Q6H PRN 10/07/23 10/14/23 History calcium carbonate 200 mg calcium 200 mg PO TID PRN 10/07/23 10/14/23 History (500 mg) chewable tablet (Tums) calcium carbonate 500 mg calcium 500 mg PO DAILY 10/07/23 10/14/23 History (1,250 mg) chewable tablet (Calcium 500) cholecalciferol (vitamin D3) 25 25 mcg PO DAILY 10/07/23 10/14/23 History mcg (1,000 unit) capsule (Vitamin D3) multivitamin (One Daily 1 tab PO DAILY 10/07/23 10/14/23 History Multivitamin tablet) pyridostigmine bromide 60 mg tablet 60 mg PO 3XD 10/07/23 10/14/23 History Allergies Allergy/AdvReac Type Severity Reaction Status Date / Time No Known Drug Allergies Allergy Verified 10/07/23 17:52 Exam Narrative: Exam Narrative: She is alert and appears in no distress. Breathing is unlabored on room air. Eyes normal. Oropharynx normal. Neck is supple without mass or adenopathy. No jugular venous distension. Respirations are clear to auscultation. Cardiovascular: S1, S2, irregularly irregular. 1/6 systolic murmur. No gallop or rub. Abdomen: Bowel sounds active. Abdomen is soft without tenderness or mass. Extremities with 1 to 2+ edema bilaterally. Custom support hose in place. Intact pedal pulses in both feet. She moves all 4 extremities well. Const: Vital Signs, click to edit/add: Vital Signs - 24 hr 10/14/23 14:40 10/14/23 14:40 10/14/23 15:00 Temperature 98.5 F Pulse Rate [Pulse Oximeter] 95 95 Respiratory Rate 20 20 20 Blood Pressure [Le ft Arm] 120/72 Pulse Oximetry 95 95 Oxygen Delivery Me thod Room Air Room Air Documenting provider has reviewed patient's vital signs: yes Assessment and Plan Assessment and plan (1) Atrial fibrillation with rapid ventricular response: Problem comment: - new finding, likely present since July given symptoms - CHADsVASC score of 4, amenable to initiating Apixaban for stroke prevention - improve HR with Diltiazem; will continue this for now and follow HR on telemetry - TTE on 10/08/2023: Normal LV chamber size, wall thickness, global systolic function, with EF 67%. Mildly enlarged right ventricle with borderline decreased function. Severe left atrial enlargement. 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 Mild aortic regurgitation. Moderate to severe mitral regurgitation. Moderate tricuspid regurgitation. Mild pulmonary hypertension with estimated right ventricular systolic pressures of 28 mmHg plus right atrial pressure. Dilated inferior vena cava. Overall the patient's mitral regurgitation and tricuspid regurgitation are worse than they were in November of 2022 when she last had an echocardiogram. She was treated with diltiazem 240 mg in the morning and 120 mg in the evening for rate control. Apixaban started for anticoagulation. 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 Mildly enlarged right ventricle with borderline decreased function. Severe left atrial enlargement. 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 Mild aortic regurgitation. Moderate to severe mitral regurgitation. Moderate tricuspid regurgitation. Mild pulmonary hypertension with estimated right ventricular systolic pressures of 28 mmHg plus right atrial pressure. Dilated inferior vena cava. Overall the patient's mitral regurgitation and tricuspid regurgitation are worsen they were in November of 2022 when she last had an echocardiogram. Status: Acute (3) Cor triatriatum maximiliano: Problem comment: - TTE on 10/08/2023: Normal LV chamber size, wall thickness, global systolic function, with EF 67%. Mildly enlarged right ventricle with borderline decreased function. Severe left atrial enlargement. 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 Mild aortic regurgitation. Moderate to severe mitral regurgitation. Moderate tricuspid regurgitation. Mild pulmonary hypertension with estimated right ventricular systolic pressures of 28 mmHg plus right atrial pressure. Dilated inferior vena cava. Overall the patient's mitral regurgitation and tricuspid regurgitation are worsen they were in November of 2022 when she last had an echocardiogram. - warrants cardiology referral Status: Acute (4) Valvular cardiomyopathy: Problem comment: - moderate to severe mitral regurgitation now compared to moderate mitral regurgitation November 2022 - moderate tricuspid regurgitation now compared to mild tricuspid regurgitation November 2022 Outpatient cardiology follow-up Status: Acute (5) Chronic anticoagulation: Problem comment: Apixaban Status: Acute (6) Myasthenia gravis: Problem comment: - Quiescent. Well managed on pyridostigmine Status: Acute Plan Patient admitted the hospital for management of symptomatic heart disease related to AFib with RVR and valvular heart disease with heart failure. Initiate amiodarone per recommendation of Cardiology. Total Time Spent Total Time Spent: Total time spent today is 60 minutes, 40 minutes in coordination of care and discussing with patient and other providers management of AFib with RVR
[2023-10-14] MEDS: pyRIDostigmine bromide 60 MG TABLET PO (16:47)
[2023-10-14 17:09] LABS: Chloride* 102 mmol/L (96-114); Sodium* 136 mmol/L (135-149)
[2023-10-14 17:10] LABS: Potassium* 4.2 mmol/L (3.6-5.1)
[2023-10-14 17:12] LABS: Est. Creatinine Clearance* 36.34; Estimated Glomerular Filt Rate 55 ml/min
[2023-10-14 17:13] LABS: Anion Gap 2 mEq/L (7-15); Blood Urea Nitrogen* 27 mg/dL (7-30); Calcium* 9.1 mg/dL (8.4-10.6); Carbon Dioxide* 32 mmol/L (20-32); Glucose* 94 mg/dL (60-115); Magnesium* 2.3 mg/dL (1.5-2.6)
[2023-10-14 17:19] LABS: C Reactive Protein* < 0.5 mg/dL (0.5-1.0)
[2023-10-14 17:35] LABS: Troponin I* < 0.01 ng/mL (0.01-0.04)
--- NOTE | 2023-10-14 18:44 | PC.NURSE ---
End of shift: Pt arrived to the unit at 1420 as a direct admit from the clinic via W/C. Pt is A&O x4, VSS and afebrile. She is independent in her room. TELE reads A. Fib. EKG done showed A. Fib with RBBB. PIV in left FA SL and C/D/I. Pt does not c/o any pain but has had intermittent mid-sternal chest pain the last few days. She also c/o some intermittent SOB but no episodes since arrival. Started on Digoxin 250mcg daily and Amiodorone 400mg BID. Pt had x1 BM this afternoon. Scattered bruising to bilateral forearms noted. ?
[2023-10-14 19:00] VITALS: BP 121/66; PULSE 93; RESP 18; TEMP 36.7; O2SAT 95
[2023-10-14] MEDS: APIXABAN 5 MG TABLET PO (20:29)
[2023-10-14] MEDS: METOPROLOL TARTRATE 25 MG TABLET PO (20:29)
[2023-10-14] MEDS: ACETAMINOPHEN 325 MG TABLET 650 MG PO (20:29)
[2023-10-14] MEDS: SODIUM CHLORIDE 0.9 % (FLUSH) 10 ML SYRINGE 5 ML IVF (20:30)
[2023-10-14 23:00] VITALS: BP 112/63; PULSE 66; PULSE 87; RESP 16; TEMP 36.7; O2SAT 96
[2023-10-15] VITALS (7 sets, daily range): BP systolic 116–135; BP diastolic 62–82; PULSE 82–109; RESP 16–18; TEMP 36.1–37.3; O2SAT 92–98
--- NOTE | 2023-10-15 05:54 | PC.NURSE ---
End of shift report [id number]: Alert and oriented x 4. Patient reports discomfort to mid sternum has decreased and states it a small ache. Denies any lightheadedness or dizziness. Sob with exertion, resolves with rest, O2 sats maintained >90% on room air. Independent with ambulation and toileting.
[2023-10-15] MEDS: LEVOTHYROXINE 100 MCG TABLET PO (06:10)
[2023-10-15] MEDS: OMEPRAZOLE 20 MG CAPSULE DR PO (06:10)
[2023-10-15] MEDS: FUROSEMIDE 40 MG TABLET PO (08:17)
[2023-10-15] MEDS: pyRIDostigmine bromide 60 MG TABLET PO ×3 (08:20→17:56)
[2023-10-15] MEDS: DIGOXIN 125 MCG TABLET PO (08:20)
[2023-10-15] MEDS: MULTIVITAMIN/MINERALS 1 TABLET 1 TAB PO (08:20)
[2023-10-15] MEDS: APIXABAN 5 MG TABLET PO ×2 (08:21→21:00)
[2023-10-15] MEDS: AMIODARONE 200 MG TABLET 400 MG PO ×2 (08:21→20:59)
[2023-10-15] MEDS: METOPROLOL TARTRATE 25 MG TABLET PO ×2 (08:21→20:59)
[2023-10-15] MEDS: CALCIUM CARBONATE 500 MG TABLET PO (08:22)
[2023-10-15] MEDS: SODIUM CHLORIDE 0.9 % (FLUSH) 10 ML SYRINGE 5 ML IVF ×2 (08:24→20:59)
--- NOTE | 2023-10-15 09:45 | P.IMPN_ITS ---
Progress Note: A&P Assessment and plan (1) Atrial fibrillation with rapid ventricular response: Problem details: - new finding, likely present since July given symptoms - CHADsVASC score of 4, amenable to initiating Apixaban for stroke prevention - improve HR with Diltiazem; will continue this for now and follow HR on telemetry - TTE on 10/08/2023: Normal LV chamber size, wall thickness, global systolic function, with EF 67%. Mildly enlarged right ventricle with borderline decreased function. Severe left atrial enlargement. 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 Mild aortic regurgitation. Moderate to severe mitral regurgitation. Moderate tricuspid regurgitation. Mild pulmonary hypertension with estimated right ventricular systolic pressures of 28 mmHg plus right atrial pressure. Dilated inferior vena cava. Overall the patient's mitral regurgitation and tricuspid regurgitation are worse than they were in November of 2022 when she last had an echocardiogram. She was treated with diltiazem 240 mg in the morning and 120 mg in the evening for rate control. Apixaban started for anticoagulation. - 10/14 HR improving, but still above 100 at rest this morning. Monitor on telemetry yet overnight and continue regimen started yesterday afternoon. Anticipate likely discharge home tomorrow if HR <100 at rest, <110 with activity. 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 Mildly enlarged right ventricle with borderline decre ased function. Severe left atrial enlargement. 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 Mild aortic regurgitation. Moderate to severe mitral regurgitation. Moderate tricuspid regurgitation. Mild pulmonary hypertension with estimated right ventricular systolic pressures of 28 mmHg plus right atrial pressure. Dilated inferior vena cava. Overall the patient's mitral regurgitation and tricuspid regurgitation are worsen they were in November of 2022 when she last had an echocardiogram. Status: Acute (3) Cor triatriatum maximiliano: Problem details: - TTE on 10/08/2023: Normal LV chamber size, wall thickness, global systolic function, with EF 67%. Mildly enlarged right ventricle with borderline decreased function. Severe left atrial enlargement. 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 Mild aortic regurgitation. Moderate to severe mitral regurgitation. Moderate tricuspid regurgitation. Mild pulmonary hypertension with estimated right ventricular systolic pressures of 28 mmHg plus right atrial pressure. Dilated inferior vena cava. Overall the patient's mitral regurgitation and tricuspid regurgitation are worsen they were in November of 2022 when she last had an echocardiogram. - warrants cardiology referral Status: Acute (4) Chronic anticoagulation: Problem details: Apixaban Status: Acute (5) Valvular cardiomyopathy: Problem details: - moderate to severe mitral regurgitation now compared to moderate mitral regurgitation November 2022 - moderate tricuspid regurgitation now compared to mild tricuspid regurgitation November 2022 Outpatient cardiology follow-up Status: Acute (6) Myasthenia gravis: Problem details: - Quiescent. Well managed on pyridostigmine Status: Chronic Subjective Time Seen by Provider: 07:40 Date Seen: 10/15/23 Interval history: Cele is feeling much better this morning. Chest pressure is gone. She denies shortness of breath. Over night her heart rates have come down into the 60s to 110s. She was in the 110s this morning when I saw her. She got her 1st dose of amiodarone at 4:30 p.m. last night and her 1st dose of digoxin this morning. She got her 1st dose of metoprolol yesterday evening. She is agreeable to stay another night and notes that somebody is taking care of her while she is here. Exam Narrative: Exam Narrative: General: No acute distress. Awake, alert, oriented x3. No pallor. No jaundice. Oropharynx: Clear. Mucous membranes moist. Cardiovascular: Mildly tachycardic, irregularly irregular. Grade 1/6 systolic murmur loudest in the left sternal border. Respiratory: Clear to auscultation bilaterally. No wheezes or crackles. Abdomen: Bowel sounds present. Soft, nondistended, nontender. Extremities: 1+ bilateral pretibial edema. Black custom support hose in place. Const: Vital Signs, click to edit/add: Vital Signs - 24 hr 10/14/23 14:40 10/14/23 14:40 10/14/23 15:00 Temperature 98.5 F Pulse Rate Pulse Rate [Pulse Oximeter] 95 95 Respiratory Rate 20 20 20 Blood Pressure [Le ft Arm] 120/72 Pulse Oximetry 95 95 Oxygen Delivery Me thod Room Air Room Air 10/14/23 19:00 10/14/23 23:00 10/14/23 23:00 Temperature 98.1 F Pulse Rate 66 Pulse Rate [Pulse Oximeter] 93 87 Respiratory Rate 18 16 Blood Pressure [Le ft Arm] 121/66 Pulse Oximetry 95 Oxygen Delivery Me thod Room Air 10/14/23 23:00 10/15/23 03:00 10/15/23 07:00 Temperature 98.1 F 97.0 F L Pulse Rate 106 H Pulse Rate [Pulse Oximeter] 87 84 Respiratory Rate 16 18 Blood Pressure [Le ft Arm] 112/63 116/64 Pulse Oximetry 96 92 Oxygen Delivery La thod Room Air Room Air 10/15/23 07:00 10/15/23 07:00 10/15/23 08:20 Temperature 97.6 F Pulse Rate 103 H Pulse Rate [Pulse Oximeter] 94 94 Respiratory Rate 18 18 Blood Pressure [Le ft Arm] 126/62 Pulse Oximetry 98 Oxygen Delivery La thod Room Air Labs Labs: Laboratory Results - last 24 hr 10/14/23 16:20 Sodium 136 Potassium 4.2 Chloride 102 Carbon Dioxide 32 Anion Gap 2 L BUN 27 Creatinine 1.0 Estimated Creat Clear 36.34 Estimated GFR 55 Glucose 94 Calcium 9.1 Magnesium 2.3 Troponin I < 0.01 L C-Reactive Protein < 0.5 L
--- NOTE | 2023-10-15 11:51 | PC.SOCIAL ---
Discharge planning: rock room worker met with pt today to discuss her discharge from the hospital when she is medically stable. Pt stated that feels she will be able to return home and has lots of friends and neighbors that have been helpful to her and her . Pt stated that the Meals on Wheels program that was started on Friday has also been very helpful for her and her . Social work to follow-up as needed.
[2023-10-15 12:34] LABS: C.Difficile Negative (Negative); CDIFFEPI 027 PRESUMPTIVE NEGATIVE (Negative)
--- NOTE | 2023-10-15 19:48 | PC.NURSE ---
Patient is alert and oriented x4, pleasant and cooperative. Patient VSS, Afib on tele. Patient tolerating a regular diet. Patient ambulating to BR and up to chair for meals.
[2023-10-15] MEDS: ACETAMINOPHEN 325 MG TABLET 650 MG PO (21:54)
[2023-10-16 03:00] VITALS: BP 146/99; PULSE 95; RESP 20; TEMP 37; O2SAT 94
--- NOTE | 2023-10-16 05:46 | PC.NURSE ---
Shift note: HR overnight 70-90ies at rest, below 110 with activities. No c/o lightheadedness or dizziness, no chest pain, independent in the room.
[2023-10-16] MEDS: LEVOTHYROXINE 100 MCG TABLET PO (06:29)
[2023-10-16] MEDS: OMEPRAZOLE 20 MG CAPSULE DR PO (06:29)
[2023-10-16 06:52] VITALS: PULSE 97
[2023-10-16] MEDS: FUROSEMIDE 40 MG TABLET PO (08:42)
[2023-10-16] MEDS: pyRIDostigmine bromide 60 MG TABLET PO (08:44)
[2023-10-16] MEDS: APIXABAN 5 MG TABLET PO (08:45)
[2023-10-16] MEDS: METOPROLOL TARTRATE 25 MG TABLET PO (08:45)
[2023-10-16] MEDS: MULTIVITAMIN/MINERALS 1 TABLET 1 TAB PO (08:45)
[2023-10-16] MEDS: CALCIUM CARBONATE 500 MG TABLET PO (08:45)
[2023-10-16] MEDS: AMIODARONE 200 MG TABLET 400 MG PO (08:45)
[2023-10-16] MEDS: SODIUM CHLORIDE 0.9 % (FLUSH) 10 ML SYRINGE 5 ML IVF (08:48)
[2023-10-16 08:50] VITALS: BP 136/85; PULSE 105; RESP 16; TEMP 36.4; O2SAT 96
[2023-10-16] MEDS: DIGOXIN 125 MCG TABLET PO (08:50)
[2023-10-16 11:15] VITALS: BP 150/94; PULSE 94; RESP 16; TEMP 36.5; O2SAT 96
--- NOTE | 2023-10-16 13:54 | PC.NURSE ---
End of Shift: Patient pleasant and cooperative. Patient vitally stable, lungs clear, BS WNL, IV removed, catheter intact. Patient independent in room. Patient reports headache but declined tylenol. Patient tolerating regular diet. Patient urinating and had 1 BM. Tele=NS w/BBB. Patient signed belongings sheet and discharge form. Patient had no further questions regarding discharge. Patient left the floor by wheelchair to home with belongings at 1351.
--- NOTE | 2023-10-16 15:44 | P.DS_ITS ---
DS: Providers Provider Date Seen: 10/16/23 Date of admission: 10/15/23 09:19 Primary care physician: Starla Greene MD Admitting Clinician: Lynne Rincon MD Attending Physician on discharge: [place] [facility] [place] [facility] Date of Discharge: 10/16/23 DS: Diagnosis Discharge Diagnosis (1) Atrial fibrillation with rapid ventricular response: Status: Acute Problem details: New finding, likely present since July given symptoms. CHADsVASC score of 4, amenable to initiating Apixaban for stroke prevention TTE on 10/08/2023: Normal LV chamber size, wall thickness, global systolic function, with EF 67%. Mildly enlarged right ventricle with borderline decreased function. Severe left atrial enlargement. 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 Mild aortic regurgitation. Moderate to severe mitral regurgitation. Moderate tricuspid regurgitation. Mild pulmonary hypertension with estimated right ventricular systolic pressures of 28 mmHg plus right atrial pressure. Dilated inferior vena cava. Overall the patient's mitral regurgitation and tricuspid regurgitation are worse than they were in November of 2022 when she last had an echocardiogram. Medication changes as follows: Diltiazem discontinued, continue amiodarone twice daily, digoxin once daily, metoprolol twice daily, Eliquis twice daily. 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: Status: Acute Problem details: TTE on 10/08/2023 results as above (3) Cor triatriatum maximiliano: Status: Acute Problem details: TTE on 10/08/2023 results as above Recommend outpatient cardiology follow-up (4) Chronic anticoagulation: Status: Acute Problem details: Apixaban (5) Valvular cardiomyopathy: Status: Acute Problem details: - moderate to severe mitral regurgitation now compared to moderate mitral regurgitation November 2022 - moderate tricuspid regurgitation now compared to mild tricuspid regurgitation November 2022 Recommend outpatient cardiology follow-up (6) Myasthenia gravis: Status: Chronic Problem details: Quiescent. Well managed on pyridostigmine DS: Summary Hospital Course Hospital Course: [age] year old female past medical history significant for acute on chronic diastolic heart failure, CHF, hypertension, myasthenia gravis, pulmonary edema, AFib on chronic anticoagulation was admitted to the medical floor for symptomatic atrial fibrillation with RVR. Course of care and details as noted above. Medication changes as noted above. On day of discharge, patient remained rate controlled, no longer symptomatic. Remainder of chronic medical comorbidities were monitored and managed with home medications. Status at Discharge Overall status at discharge: patient is back to baseline Time Spent with Patient Time attestation: Total time spent providing and/or coordinating discharge services: Time spent: Greater than 30 minutes Exam Narrative: Exam Narrative: PHYSICAL EXAM General: Pleasant, conversant, NAD Cardiovascular: IRRR Pulmonary: No dyspnea Neurological: Alert, answering questions appropriately Skin: Warm, dry. Const: Vital Signs, click to edit/add: Vital Signs - 24 hr 10/15/23 19:49 10/15/23 23:00 10/15/23 23:00 Temperature 99.1 F Pulse Rate 109 H Pulse Rate [Pulse Oximeter] 107 H 107 H Respiratory Rate 18 18 Blood Pressure [Le ft Arm] 128/81 Blood Pressure [Ri ght Arm] Pulse Oximetry 96 Oxygen Delivery Me thod Room Air 10/15/23 23:00 10/16/23 03:00 10/16/23 06:52 Temperature 98.6 F Pulse Rate 97 Pulse Rate [Pulse Oximeter] 84 95 Respiratory Rate 16 20 Blood Pressure [Le ft Arm] 146/99 H Blood Pressure [Ri ght Arm] Pulse Oximetry 94 Oxygen Delivery Me thod Room Air 10/16/23 08:50 10/16/23 08:50 10/16/23 08:50 Temperature 97.6 F Pulse Rate 105 H Pulse Rate [Pulse Oximeter] 105 H 105 H Respiratory Rate 16 16 Blood Pressure [Le ft Arm] 136/85 Blood Pressure [Ri ght Arm] Pulse Oximetry 96 Oxygen Delivery Me thod Room Air 10/16/23 11:15 Temperature 97.7 F Pulse Rate Pulse Rate [Pulse Oximeter] 94 Respiratory Rate 16 Blood Pressure [Le ft Arm] Blood Pressure [Ri ght Arm] 150/94 H Pulse Oximetry 96 Oxygen Delivery Me thod Room Air Discharge Plan Discharge Disposition: Home, Self-Care Date of Admission: 10/15/23 09:19 Attending Provider on Discharge: Mely Hsu Primary Care Provider: Starla Greene Condition: Improved Anticipated Discharge Date/Time: 10/16/23 11:06 Discharge Medications: New amiodarone 200 mg Tablet 400 mg PO BID Qty: 60 0RF digoxin 125 mcg (0.125 mg) Tablet 125 mcg PO DAILY Qty: 30 0RF metoprolol tartrate 25 mg Tablet 25 mg PO BID Qty: 60 0RF Continued levothyroxine 100 mcg tablet 100 mcg PO DAILY omeprazole 20 mg capsule,delayed release(DR/EC) 20 mg PO DAILY pyridostigmine bromide 60 mg tablet 60 mg PO 3XD calcium carbonate [Calcium 500] 500 mg calcium (1,250 mg) tablet,chewable 500 mg PO DAILY cholecalciferol (vitamin D3) [Vitamin D3] 25 mcg (1,000 unit) capsule 25 mcg PO DAILY calcium carbonate [Tums] 200 mg calcium (500 mg) tablet,chewable 200 mg PO TID PRN acetaminophen 325 mg tablet 650 mg PO Q6H PRN multivitamin [One Daily Multivitamin] Tablet 1 tab PO DAILY furosemide 40 mg Tablet 40 mg PO DAILY@0800 30 Days Qty: 30 2RF Eliquis 5 mg Tablet 5 mg PO BID 30 Days Qty: 60 2RF Discontinued diltiazem HCl 240 mg Capsule,Extended Release 24hr 240 mg PO DAILY 30 Days Qty: 30 2RF diltiazem HCl 120 mg capsule,extended release 24hr 120 mg PO QHS Qty: 30 2RF metoprolol tartrate 25 mg tablet 25 mg PO DAILY PRN (Reason: paroxysmal tachycardia) Qty: 10 2RF Rx Instructions: If resting heart rate is greater than 100 beats per minute for more than 5 minutes. Seek additional emergent help if not responding after 1 hour. Discharge Orders: Discharge Order (Routine); Ordered 10/16/23 Ordered By: Mely Hsu Patient Education: Metoprolol (By mouth), Digoxin (By mouth), Amiodarone (By mouth), A-fib (Atrial Fibrillation) (GEN) Additional Instructions: Medication changes as follows: Your diltiazem has been discontinued, you no longer need to take this. Take amiodarone twice daily. Take digoxin once daily. Take metoprolol twice daily. Take Eliquis twice daily. Outpatient follow-up with her PCP. 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 Recommend cardiology referral) Forms: [employer] Info Instructions
== END 2023-10-16 13:51 | disposition home or self-care (01) | DRG 308 ==
PROVIDERS: Family Medicine; Admitting Provider Family Medicine; PCP Family Medicine; Visit Provider Family Medicine
DX: I48.91 Unspecified atrial fibrillation (principal); I50.33 Acute on chronic diastolic (congestive) heart failure; Q24.2 Cor triatriatum; I43 Cardiomyopathy in diseases classified elsewhere; I11.0 Hypertensive heart disease with heart failure; I08.3 Combined rheumatic disorders of mitral, aortic and tricuspid valves; G70.00 Myasthenia gravis without (acute) exacerbation; E03.9 Hypothyroidism, unspecified; Z79.01 Long term (current) use of anticoagulants
CPT/HCPCS: 36415; 80048; 83735; 84484; 86140; 87493; 93005; G0378; A9153; A9270; G0379

== ENCOUNTER 2023-10-17 13:08 | Outpatient (RCR) | payer MEDICARE, BC, SELFPAY | END 2023-10-29 08:26 | disposition home or self-care (01) | PROVIDERS: PCP Family Medicine; Visit Provider Internal Medicine | DX: I48.20 Chronic atrial fibrillation, unspecified (principal); Z51.89 Encounter for other specified aftercare | CPT/HCPCS: 97165; 97535 ==

== ENCOUNTER 2023-10-24 11:01 | Outpatient (CLI) | payer MEDICARE, BC, SELFPAY | END 2023-10-24 11:02 | disposition home or self-care (01) | LOC: AMB 11-01 14:04 | PROVIDERS: PCP Family Medicine; Visit Provider Family Medicine | DX: R07.89 Other chest pain (principal) | CPT/HCPCS: A0998 ==

== ENCOUNTER 2023-10-27 08:57 | Emergency (ER) | payer MEDICARE, BC, SELFPAY ==
[2023-10-27 09:08] VITALS: BP 159/87; PULSE 64; RESP 20; TEMP 37.2; O2SAT 97; BMI 23.4
[2023-10-27 09:29] VITALS: O2SAT 97
[2023-10-27] MEDS: ONDANSETRON 2 MG/ML inj 4 MG IVP (09:30)
[2023-10-27] MEDS: 0.9 % SODIUM CHLORIDE 250 ml 250 ML IV (09:30)
--- NOTE | 2023-10-27 09:37 | ED.GENADULT ---
HPI - General Adult General Chief complaint: Abdominal Pain Stated complaint: nausea,unable to eat Time Seen by Provider: 10/27/23 09:18 Source: patient Mode of arrival: ambulatory Limitations: no limitations History of Present Illness HPI narrative: 88-year-old female coming in today complaining of nausea for the last 3 days. She describes her nausea as feeling like she does not want to eat and that nothing sounds good to her. She denies the feeling of needing to throw up. She states that 3 days ago she had an episode her heart was racing up into the 150s. She took an extra dose of amiodarone and felt better. That occurred in the morning and by lunch time she started feeling nauseated. She states that she has not been able to eat anything but toaster soup since then. She has not vomited. She denies fevers or chills. She is not having any chest pain or shortness of breath. She denies abdominal discomfort. She is not having any diarrhea or dysuria. She states that nothing sounds good and she simply has to force herself to eat because she has to take food with her medications. She just feels off. Patient was recently diagnosed with atrial fibrillation. She is on Eliquis. Related Data Home Medications Medication Instructions Recorded Confirmed levothyroxine 100 mcg tablet 100 mcg PO DAILY 06/09/23 10/27/23 omeprazole 20 mg capsule,delayed 20 mg PO DAILY 06/09/23 10/27/23 release acetaminophen 325 mg tablet 650 mg PO Q6H PRN 10/07/23 10/14/23 calcium carbonate 200 mg calcium 200 mg PO TID PRN 10/07/23 10/14/23 (500 mg) chewable tablet (Tums) calcium carbonate 500 mg calcium 500 mg PO DAILY 10/07/23 10/14/23 (1,250 mg) chewable tablet (Calcium 500) cholecalciferol (vitamin D3) 25 25 mcg PO DAILY 10/07/23 10/14/23 mcg (1,000 unit) capsule (Vitamin D3) multivitamin (One Daily 1 tab PO DAILY 10/07/23 10/27/23 Multivitamin tablet) pyridostigmine bromide 60 mg tablet 60 mg PO 3XD 10/07/23 10/27/23 diltiazem HCl 120 mg 120 mg PO QPM 10/27/23 capsule,extended release 24 hr diltiazem HCl 240 mg 240 mg PO DAILY 10/27/23 10/27/23 capsule,extended release 24 hr Previous Rx's Medication Instructions Recorded apixaban 5 mg tablet (Eliquis) 5 mg PO BID 30 days #60 tabs 10/10/23 furosemide 40 mg tablet 40 mg PO DAILY@0800 30 days #30 10/10/23 tabs amiodarone 200 mg tablet 400 mg (2 x 200 mg) PO BID #60 tabs 10/16/23 digoxin 125 mcg (0.125 mg) tablet 125 mcg PO DAILY #30 tabs 10/16/23 metoprolol tartrate 25 mg tablet 25 mg PO BID #60 tabs 10/16/23 Allergies Allergy/AdvReac Type Severity Reaction Status Date / Time No Known Drug Allergies Allergy Verified 10/27/23 09:13 Review of Systems Status of ROS: Reports: 10 or more systems reviewed and unremarkable except as noted in History and below 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) Essential hypertension ?I10 - Essential (primary) hypertension (ICD-10) Myasthenia gravis ?G70.00 - Myasthenia gravis without (acute) exacerbation (ICD-10) Hypothyroidism ?E03.9 - Hypothyroidism, unspecified (ICD-10) Diverticulosis ?K57.90 - Diverticulosis of intestine, part unspecified, without perforation or abscess without bleeding (ICD-10) Surgical History H/O vitrectomy ?Z98.890 - Other specified postprocedural states (ICD-10) History of thymectomy ?Z90.89 - Acquired absence of other organs (ICD-10) Hx of appendectomy ?Z90.49 - Acquired absence of other specified parts of digestive tract (ICD-10) H/O thyroidectomy ?E89.0 - Postprocedural hypothyroidism (ICD-10) Social History Narrative: Lives with , Maury, of 60+ year. He is healthcare power of divorce attorney. Secondary healthcare power of divorce attorney is her son Jose. Code status is DNR. She does not smoke. She does not drink alcohol What is your current living situation?: I presently have a place to live Problems where you live: no known problems Problems where you live details: N/A In the past 12 months, utilities in danger of being shut off: no In past 12 months, lack of transportation kept you from medical appts, meetings, work, or getting things needed for daily living: no In the past 12 mos, have been you worried that your food would run out before you had money to buy more?: never true In the past 12 mos, the food you bought just didn't last and you didn't have money to buy more?: never true Highest level of school completed/degree received: some college, no degree Smoking Status: Never smoker Do you use any of these nicotine containing products: None Second hand tobacco smoke exposure: Yes (history) How often do you have a drink containing alcohol: never How often do you have six or more drinks on one occasion: Never AUDIT-C Alcohol total score: 0 Non-prescribed substance use: denies use Caffeine: Yes (coffee daily) Are you now , , , , never or living with a partner: Social isolation score (0-1 are the most socially isolated patients): 1 How often does anyone, including family, friends and others, physically hurt you: never How often does anyone, including family, friends and others, insult or talk down to you: never How often does anyone, including family, friends and others, threaten you with harm: never How often does anyone, including family, friends and others, scream or curse at you: never service: No Exam Narrative: Exam Narrative: Well-nourished well-developed elderly patient in no acute distress. Alert and oriented. Answers questions appropriately. Mood and affect are appropriate. Thoughts are goal oriented and rational. No tangential or magical thinking noted. Patient speaks in full sentences without needing to catch her breath. HEENT: Normocephalic atraumatic. Pupils are equally round reactive to light. Extraocular muscles are intact. Conjunctivae are moist without any icterus noted. Moist mucous membranes. Posterior pharynx is normal. Neck is soft without any lymphadenopathy or thyromegaly. No masses are appreciated. Cardiovascular: Heart is regular rate and rhythm S1 and S2 are present without any murmurs. Lungs: Clear to auscultation bilaterally no wheezes rhonchi or rales are appreciated. Patient takes deep breaths without any discomfort. Abdomen: Soft and nontender nondistended with normal bowel sounds. Extremities: Bilateral lower extremities are without edema. Normal DP and PT pulses. Skin: Well perfused without any obvious rashes. Const: Vital Signs, click to edit/add: Vital Signs - 24 hr 10/27/23 09:08 Temperature 98.9 F Pulse Rate [Right Pulse Oximeter] 64 Respiratory Rate 20 Blood Pressure [Ri ght Upper Arm] 159/87 H Pulse Oximetry 97 Oxygen Delivery Me thod Room Air Course Course ED Course: EKG, read by me, shows normal sinus rhythm with a first-degree AV block, pulse is 65. WBC is unremarkable. Normal lactate. Chemistries are normal. Normal LFTs. Normal CRP. UA unremarkable. Triple swab negative. Patient did receive a normal saline and Zofran and did feel better. She had no cardiac arrhythmia is while she was here. Vital Signs Vital signs: Initial Vital Signs Temperature 98.9 F 10/27/23 09:08 Temperature Source Temporal Artery Scan 10/27/23 09:08 Pulse Rate 64 10/27/23 09:08 Pulse Rhythm Regular 10/27/23 09:08 Respiratory Rate 20 10/27/23 09:08 Blood Pressure 159/87 H 10/27/23 09:08 Blood Pressure Mean 111 H 10/27/23 09:08 Blood Pressure Position Semi-Fowlers 10/27/23 09:08 Pulse Oximetry 97 10/27/23 09:08 Oxygen Delivery Method Room Air 10/27/23 09:08 Vital Signs Temperature 98.9 F 10/27/23 09:08 Pulse Rate 64 10/27/23 09:08 Respiratory Rate 20 10/27/23 09:08 Blood Pressure 159/87 H 10/27/23 09:08 Pulse Oximetry 97 10/27/23 09:08 Oxygen Delivery Method Room Air 10/27/23 09:08 Temperature 98.9 F 10/27/23 09:08 Pulse Rate 64 10/27/23 09:08 Respiratory Rate 20 10/27/23 09:08 Blood Pressure 159/87 H 10/27/23 09:08 Pulse Oximetry 97 10/27/23 09:08 Oxygen Delivery Method Room Air 10/27/23 09:08 Medications Administered Medications: Discontinued Medications Generic Name Dose Route Start Last Admin Trade Name Anabelle PRN Reason Stop Dose Admin Sodium Chloride 250 mls @ 250 mls/hr 10/27/23 09:28 10/27/23 10:26 0.9 % Sodium Chloride 250 Ml IV 10/27/23 10:27 Infused .Q1H ONE Infusion Ondansetron HCl 4 mg 10/27/23 09:28 10/27/23 09:30 Ondansetron 2 Mg/Ml Inj IVP 10/27/23 09:29 4 mg ONCE ONE Administration Medical Decision Making MDM Narrative Medical decision making narrative: 88-year-old female with decrease in appetite. We discussed staying well hydrated. I will send her home with some Zofran. We discussed her symptoms change at all, I do want her to return to the ER. I also want her to follow up with her primary care provider in about 1 week. Patient was in agreement and had no other questions. Medical Records Medical records reviewed: Yes I reviewed the patient's medical records Lab Data Lab results reviewed: Yes I reviewed the patient's lab results Labs: Lab Results 10/27/23 10/27/23 Range/Units 09:40 10:33 WBC 8.14 (4.50-11.00) K/uL RBC 4.83 (4.00-5.20) m/uL Hgb 13.8 (12.0-16.0) gm/dL Hct 44.4 (33.0-51.0) % MCV 92 (80-100) fL MCH 29 (26-34) pg MCHC 31 L (32-36) gm/dL RDW Coeff of Theodore 14.0 (11.5-15.5) % Plt Count 147 (140-440) K/uL Neut % (Auto) 40.9 L (42.0-72.0) % Lymph % (Auto) 46.1 H (20-44) % [place] % (Auto) 10.0 (0.0-11.0) % Eos % (Auto) 2.2 (0.0-7.0) % Baso % (Auto) 0.7 (0.0-3.0) % Neut # (Auto) 3.30 (1.7-7.0) K/uL Lymph # (Auto) 3.80 H (0.90-2.90) K/uL [place] # (Auto) 0.80 (0.00-0.90) K/UL Eos # (Auto) 0.18 (0.00-0.50) K/uL Baso # (Auto) 0.06 (0.00-0.30) K/uL Abs Immat Gran (auto) 0.01 (0.00-0.30) K/uL Imm/Tot Granulo (auto) 0.1 % Sodium 136 (135-149) mmol/L Potassium 4.4 (3.6-5.1) mmol/L Chloride 105 (96-114) mmol/L Carbon Dioxide 29 (20-32) mmol/L Anion Gap 2 L (7-15) mEq/L BUN 25 (7-30) mg/dL Creatinine 1.2 (0.5-1.5) mg/dL Estimated Creat Clear 31.50 Estimated GFR 44 ml/min Glucose 95 (60-115) mg/dL Lactate 1.0 (0.5-1.9) mmol/L Calcium 8.7 (8.4-10.6) mg/dL Total Bilirubin 1.0 (0.1-1.5) mg/dL Direct Bilirubin 0.1 (0.0-0.5) mg/dL AST 33 (12-35) U/L ALT 19 (4-35) U/L Alkaline Phosphatase 66 (40-150) U/L Troponin I 0.02 (0.01-0.04) ng/mL C-Reactive Protein < 0.5 L (0.5-1.0) mg/dL NT-Pro-B Natriuret Pep 2310 pg/mL Total Protein 7.0 (6.0-8.3) g/dL Albumin 3.9 (3.3-5.0) g/dL Urine Color Yellow (Yellow) Urine Appearance Clear (Clear) Urine pH 7.0 (5.0-8.5) Ur Specific [place] 1.015 (1.000-1.030) Urine Protein 2+ A (Negative) Urine Glucose (UA) Negative (Negative) Urine Ketones Trace A (Negative) Urine Blood Negative (Negative) Urine Nitrite Negative (Negative) Urine Bilirubin Negative (Negative) Urine Urobilinogen 0.2 (0.2-1.0) Ur Leukocyte Esterase Negative (Negative) Urine RBC 0-2 (0-2) Urine WBC 0-2 (0-5) Ur Squamous Epith Cells Few (None-Few) Urine Bacteria Few A (None) SARS-CoV-2 (PCR) Negative SARS-CoV-2 (Negative) Influenza Type A (PCR) Negative PCR FLU A (Negative) Influenza Type B (PCR) Negative PCR FLU B (Negative) ECG Data Attestation: I personally reviewed and interpreted this ECG as follows: Discharge Plan Discharge Clinical Impression: Decrease in appetite Patient Disposition: Home, Self-Care Condition: Stable Additional Instructions: Do your best to stay well hydrated. Follow-up with your primary care provider at the end of this week or early next week. If you develop vomiting, fevers or any worsening symptoms I do want you to return to the ER. Prescriptions: No Action levothyroxine 100 mcg tablet 100 mcg PO DAILY omeprazole 20 mg capsule,delayed release(DR/EC) 20 mg PO DAILY pyridostigmine bromide 60 mg tablet 60 mg PO 3XD calcium carbonate [Calcium 500] 500 mg calcium (1,250 mg) tablet,chewable 500 mg PO DAILY cholecalciferol (vitamin D3) [Vitamin D3] 25 mcg (1,000 unit) capsule 25 mcg PO DAILY calcium carbonate [Tums] 200 mg calcium (500 mg) tablet,chewable 200 mg PO TID PRN acetaminophen 325 mg tablet 650 mg PO Q6H PRN multivitamin [One Daily Multivitamin] Tablet 1 tab PO DAILY furosemide 40 mg Tablet 40 mg PO DAILY@0800 30 Days Qty: 30 2RF Eliquis 5 mg Tablet 5 mg PO BID 30 Days Qty: 60 2RF amiodarone 200 mg Tablet 400 mg PO BID Qty: 60 0RF digoxin 125 mcg (0.125 mg) Tablet 125 mcg PO DAILY Qty: 30 0RF metoprolol tartrate 25 mg Tablet 25 mg PO BID Qty: 60 0RF diltiazem HCl 120 mg capsule,extended release 24hr 120 mg PO QPM diltiazem HCl 240 mg capsule,extended release 24hr 240 mg PO DAILY Follow Up/Referrals: Starla Greene MD [Primary Care Provider] - Stand Alone Forms: [employer] Info Instructions
[2023-10-27 09:54] LABS: Basophils Absolute Auto 0.06 K/uL (0.00-0.30); Basophils Percent Auto 0.7 % (0.0-3.0); Eosinophils Absolute Auto 0.18 K/uL (0.00-0.50); Eosinophils Percent Auto 2.2 % (0.0-7.0); Hematocrit 44.4 % (33.0-51.0); Hemoglobin* 13.8 gm/dL (12.0-16.0); Immature Granulocytes Abs Auto 0.01 K/uL (0.00-0.30); Immature Granulocytes Pct Auto 0.1 %; Lymphocytes Percent Auto 46.1 % (20-44); Mean Corpuscular HGB Conc 31 gm/dL (32-36); Mean Corpuscular Hemoglobin 29 pg (26-34); Mean Corpuscular Volume 92 fL (80-100); Neutrophils Percent Auto 40.9 % (42.0-72.0); Platelet Count* 147 K/uL (140-440); Red Blood Count 4.83 m/uL (4.00-5.20); White Blood Count* 8.14 K/uL (4.50-11.00)
[2023-10-27 09:58] LABS: Slide Review Reflex No
[2023-10-27 10:05] LABS: Chloride* 105 mmol/L (96-114)
[2023-10-27 10:06] LABS: Potassium* 4.4 mmol/L (3.6-5.1); Sodium* 136 mmol/L (135-149)
[2023-10-27 10:07] LABS: Albumin* 3.9 g/dL (3.3-5.0)
[2023-10-27 10:08] LABS: Creatinine* 1.2 mg/dL (0.5-1.5); Estimated Glomerular Filt Rate 44 ml/min
[2023-10-27 10:09] LABS: Anion Gap 2 mEq/L (7-15); Blood Urea Nitrogen* 25 mg/dL (7-30); Carbon Dioxide* 29 mmol/L (20-32); Glucose* 95 mg/dL (60-115)
[2023-10-27 10:10] LABS: Alanine Aminotransferase* 19 U/L (4-35); Alkaline Phosphatase* 66 U/L (40-150); Aspartate Amino Transferase* 33 U/L (12-35); Bilirubin Direct* 0.1 mg/dL (0.0-0.5); Calcium* 8.7 mg/dL (8.4-10.6)
[2023-10-27 10:21] LABS: Troponin I* 0.02 ng/mL (0.01-0.04)
[2023-10-27 10:22] LABS: C Reactive Protein* < 0.5 mg/dL (0.5-1.0)
[2023-10-27 10:23] LABS: NT Pro B Type NatriureticPept* 2310 pg/mL
[2023-10-27 10:30] LABS: PCR FLU A Negative PCR FLU A (Negative); PCR FLU B Negative PCR FLU B (Negative); SARS PCR* Negative SARS-CoV-2 (Negative)
[2023-10-27 10:49] LABS: Appearance Urine Clear (Clear); Bilirubin Urine Negative (Negative); Blood Urine Negative (Negative); Color Urine Yellow (Yellow); Glucose Urine Negative (Negative); Ketones Urine Trace (Negative); Leukocyte Esterase Urine Negative (Negative); Nitrite Urine Negative (Negative); Protein Urine 2+ (Negative); Specific Gravity Urine 1.015 (1.000-1.030); Urobilinogen Urine 0.2 (0.2-1.0)
[2023-10-27 11:14] LABS: Bacteria Urine Few; RBC Urine 0-2 (0-2); Squamous Epithelial Cell Urine Few (None-Few); WBC Urine 0-2 (0-5)
[2023-10-27 14:53] LABS: Digoxin* 1.4 ng/mL (0.8-2.0)
--- NOTE | 2023-10-28 12:42 | P.EN_ITS ---
Chart Event Note Date Seen: 10/28/23 Chart Event Note: 88-year-old female recently hospitalized with AFib in [facility]. She was treated with diltiazem, amiodarone, metoprolol, digoxin. She reports in the last couple days she has been quite nauseated. She was seen in the emergency room yesterday for evaluation was unremarkable. Digoxin levels obtained after she left the emergency department and was 1.4. On the chance this is contributing to her nausea I have asked her to stop taking digoxin. She also does not likely need it for rate control given her multiple other rate control medications. I have asked her to follow-up with her primary care doctor to review her medications, her nausea and her blood pressure and pulse.
== END 2023-10-27 12:08 | disposition home or self-care (01) ==
PROVIDERS: Emergency Provider Family Medicine; PCP Family Medicine
DX: R63.0 Anorexia (principal)
CPT/HCPCS: 36415; 80048; 80076; 80162; 81001; 83605; 83880; 84484; 85025; 86140; 87086; 87631; 93005; 94761; 96374; 99284; J2405; J7050

== ENCOUNTER 2023-10-31 10:25 | Emergency (ER) | payer MEDICARE, BC, SELFPAY ==
[2023-10-31 10:36] VITALS: BP 150/62; PULSE 51; RESP 18; TEMP 36.3; O2SAT 97; BMI 23.4
--- NOTE | 2023-10-31 11:22 | ED.GENADULT ---
HPI - General Adult General Chief complaint: Unspecified Complaint, Adult Stated complaint: vitals are abnormal Time Seen by Provider: 10/31/23 10:54 History of Present Illness HPI narrative: This 88-year-old female comes in with concern about a low blood pressure reading that occurred this morning. She checked her blood pressure with the results of . She recheck several more times and had blood pressures and satisfactory range. She did not have any symptoms of lightheadedness. She did not lose consciousness. She felt fine all long except for a report of nausea symptoms. She was seen a few days ago and had been started on digoxin for rate control. She does have history of atrial fibrillation. She is on other rate control medications so this digoxin was discontinued. She has been taking Zofran but only has 1 tablet left. She states that it has not seemed to help her much. Related Data Home Medications Medication Instructions Recorded Confirmed levothyroxine 100 mcg tablet 100 mcg PO DAILY 06/09/23 10/27/23 omeprazole 20 mg capsule,delayed 20 mg PO DAILY 06/09/23 10/27/23 release acetaminophen 325 mg tablet 650 mg PO Q6H PRN 10/07/23 10/14/23 calcium carbonate 200 mg calcium 200 mg PO TID PRN 10/07/23 10/14/23 (500 mg) chewable tablet (Tums) calcium carbonate 500 mg calcium 500 mg PO DAILY 10/07/23 10/14/23 (1,250 mg) chewable tablet (Calcium 500) cholecalciferol (vitamin D3) 25 25 mcg PO DAILY 10/07/23 10/14/23 mcg (1,000 unit) capsule (Vitamin D3) multivitamin (One Daily 1 tab PO DAILY 10/07/23 10/27/23 Multivitamin tablet) pyridostigmine bromide 60 mg tablet 60 mg PO 3XD 10/07/23 10/27/23 diltiazem HCl 120 mg 120 mg PO QPM 10/27/23 capsule,extended release 24 hr diltiazem HCl 240 mg 240 mg PO DAILY 10/27/23 10/27/23 capsule,extended release 24 hr Previous Rx's Medication Instructions Recorded apixaban 5 mg tablet (Eliquis) 5 mg PO BID 30 days #60 tabs 10/10/23 furosemide 40 mg tablet 40 mg PO DAILY@0800 30 days #30 10/10/23 tabs amiodarone 200 mg tablet 400 mg (2 x 200 mg) PO BID #60 tabs 10/16/23 digoxin 125 mcg (0.125 mg) tablet 125 mcg PO DAILY #30 tabs 10/16/23 metoprolol tartrate 25 mg tablet 25 mg PO BID #60 tabs 10/16/23 ondansetron 4 mg disintegrating 4 mg PO BID-TID PRN nausea and 10/27/23 tablet vomiting #10 tabs metoclopramide HCl 10 mg tablet 10 mg PO Q6H PRN nausea and 10/31/23 (Reglan) vomiting #15 tabs Allergies Allergy/AdvReac Type Severity Reaction Status Date / Time No Known Drug Allergies Allergy Verified 10/27/23 09:13 Review of Systems Status of ROS: Reports: 10 or more systems reviewed and unremarkable except as noted in History and below Narrative: Constitutional: No fevers, no weight gain or loss. Eyes: No discharge. No vision changes. HENT: No congestion, no sore throat, no ear pain. Cardiovascular: No chest pain, no palpitations. Respiratory: No shortness of breath, no wheezes, no cough. Gastrointestinal: No abdominal pain, no vomiting, no diarrhea. She reports nausea and loss of appetite. Genitourinary: No dysuria, no hematuria. Musculoskeletal: Normal range of motion. Skin: No rashes, no pruritis. Neurological: No dizziness, weakness, sensory change, speech change. Endo/Heme/Allergies: No bruising or bleeding. No polydipsia. Pysch: no suicidality, no anxiety, no insomnia. All other systems reviewed and are negative. 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 (ICD-10) Essential hypertension ?I10 - Essential (primary) hypertension (ICD-10) Myasthenia gravis ?G70.00 - Myasthenia gravis without (acute) exacerbation (ICD-10) Hypothyroidism ?E03.9 - Hypothyroidism, unspecified (ICD-10) Diverticulosis ?K57.90 - Diverticulosis of intestine, part unspecified, without perforation or abscess without bleeding (ICD-10) Surgical History H/O vitrectomy ?Z98.890 - Other specified postprocedural states (ICD-10) History of thymectomy ?Z90.89 - Acquired absence of other organs (ICD-10) Hx of appendectomy ?Z90.49 - Acquired absence of other specified parts of digestive tract (ICD-10) H/O thyroidectomy ?E89.0 - Postprocedural hypothyroidism (ICD-10) Social History Narrative: Lives with , Maury, of 60+ year. He is healthcare power of workers compensation defense attorney. Secondary healthcare power of workers compensation defense attorney is her son Jose. Code status is DNR. She does not smoke. She does not drink alcohol What is your current living situation?: I presently have a place to live Problems where you live: no known problems Problems where you live details: N/A In the past 12 months, utilities in danger of being shut off: no In past 12 months, lack of transportation kept you from medical appts, meetings, work, or getting things needed for daily living: no In the past 12 mos, have been you worried that your food would run out before you had money to buy more?: never true In the past 12 mos, the food you bought just didn't last and you didn't have money to buy more?: never true Highest level of school completed/degree received: some college, no degree Smoking Status: Never smoker Do you use any of these nicotine containing products: None Second hand tobacco smoke exposure: Yes (history) How often do you have a drink containing alcohol: never How often do you have six or more drinks on one occasion: Never AUDIT-C Alcohol total score: 0 Non-prescribed substance use: denies use Caffeine: Yes (coffee daily) Are you now , , , , never or living with a partner: Social isolation score (0-1 are the most socially isolated patients): 1 How often does anyone, including family, friends and others, physically hurt you: never How often does anyone, including family, friends and others, insult or talk down to you: never How often does anyone, including family, friends and others, threaten you with harm: never How often does anyone, including family, friends and others, scream or curse at you: never service: No Exam Narrative: Exam Narrative: Constitutional: Well-developed, well-nourished, no acute distress. HEENT: Normocephalic, atraumatic. Neck: Normal range of motion. Nontender. Supple. Heart: Regular. No murmurs. Bradycardia with a rate at 51 beats per minute. Intact distal pulses. Lungs: Clear to auscultation. No chest discomfort. No wheezes, rhonchi, or rales. Abdomen: Normal bowel sounds. Nontender. No rebound tenderness. Genitalia: Deferred. Back: No midline tenderness. Normal range of motion. Extremities: Normal range of motion. No injury. Skin: Intact. No rash. Warm. No erythema or pallor. Neurologic: No altered sensation. No weakness. Alert and oriented. Psychiatric: No suicidality. No anxiety or depression. No insomnia. Nursing notes and vitals signs are reviewed. Const: Vital Signs, click to edit/add: Vital Signs - 24 hr 10/31/23 10:36 Temperature 97.4 F L Pulse Rate [Right Pulse Oximeter] 51 L Respiratory Rate 18 Blood Pressure [Ri ght Upper Arm] 150/62 H Pulse Oximetry 97 Oxygen Delivery Me thod Room Air Course Vital Signs Vital signs: Initial Vital Signs Temperature 97.4 F L 10/31/23 10:36 Temperature Source Temporal Artery Scan 10/31/23 10:36 Pulse Rate 51 L 10/31/23 10:36 Respiratory Rate 18 10/31/23 10:36 Blood Pressure 150/62 H 10/31/23 10:36 Blood Pressure Mean 91 10/31/23 10:36 Blood Pressure Position Sitting 10/31/23 10:36 Pulse Oximetry 97 10/31/23 10:36 Oxygen Delivery Method Room Air 10/31/23 10:36 Vital Signs Temperature 97.4 F L 10/31/23 10:36 Pulse Rate 51 L 10/31/23 10:36 Respiratory Rate 18 10/31/23 10:36 Blood Pressure 150/62 H 10/31/23 10:36 Pulse Oximetry 97 10/31/23 10:36 Oxygen Delivery Method Room Air 10/31/23 10:36 Temperature 97.4 F L 10/31/23 10:36 Pulse Rate 51 L 10/31/23 10:36 Respiratory Rate 18 10/31/23 10:36 Blood Pressure 150/62 H 10/31/23 10:36 Pulse Oximetry 97 10/31/23 10:36 Oxygen Delivery Method Room Air 10/31/23 10:36 Medications Administered Medications: Discontinued Medications Generic Name Dose Route Start Last Admin Trade Name Millerq PRN Reason Stop Dose Admin Metoclopramide HCl 10 mg 10/31/23 11:21 10/31/23 12:05 Metoclopramide 10 Mg Tablet PO 10/31/23 11:22 10 mg ONCE ONE Administration Medical Decision Making MDM Narrative Medical decision making narrative: This patient comes in with concern about a low blood pressure reading. It was quite low at a systolic value of 55. Subsequent reading soon thereafter at home showed normal readings. The patient did not have any lightheadedness or symptoms. She comes in with concern about that 1 low blood pressure reading which I explained does not appear to be an accurate reading given her lack of associated symptoms and subsequent readings that were normal. She is reporting some nausea symptoms and recently discontinued digoxin. She has been taking Zofran without much relief of nausea. She did receive a tablet of Reglan here and this brought great relief of her symptoms. She is okay to be discharged home and received a prescription for more tablets of Reglan. Discharge Plan Discharge Clinical Impression: Feared condition not demonstrated Patient Disposition: Home, Self-Care Condition: Improved Additional Instructions: Take medication as needed and directed. Follow up with MD or return if worsening. Prescriptions: New metoclopramide HCl [Reglan] 10 mg tablet 10 mg PO Q6H PRN (Reason: nausea and vomiting) Qty: 15 0RF No Action levothyroxine 100 mcg tablet 100 mcg PO DAILY omeprazole 20 mg capsule,delayed release(DR/EC) 20 mg PO DAILY pyridostigmine bromide 60 mg tablet 60 mg PO 3XD calcium carbonate [Calcium 500] 500 mg calcium (1,250 mg) tablet,chewable 500 mg PO DAILY cholecalciferol (vitamin D3) [Vitamin D3] 25 mcg (1,000 unit) capsule 25 mcg PO DAILY calcium carbonate [Tums] 200 mg calcium (500 mg) tablet,chewable 200 mg PO TID PRN acetaminophen 325 mg tablet 650 mg PO Q6H PRN multivitamin [One Daily Multivitamin] Tablet 1 tab PO DAILY furosemide 40 mg Tablet 40 mg PO DAILY@0800 30 Days Qty: 30 2RF Eliquis 5 mg Tablet 5 mg PO BID 30 Days Qty: 60 2RF amiodarone 200 mg Tablet 400 mg PO BID Qty: 60 0RF digoxin 125 mcg (0.125 mg) Tablet 125 mcg PO DAILY Qty: 30 0RF metoprolol tartrate 25 mg Tablet 25 mg PO BID Qty: 60 0RF diltiazem HCl 120 mg capsule,extended release 24hr 120 mg PO QPM diltiazem HCl 240 mg capsule,extended release 24hr 240 mg PO DAILY ondansetron 4 mg tablet,disintegrating 4 mg PO BID-TID PRN (Reason: nausea and vomiting) Qty: 10 0RF Follow Up/Referrals: Starla Greene MD [Primary Care Provider] - Stand Alone Forms: [facility] Info Instructions
[2023-10-31] MEDS: METOCLOPRAMIDE 10 MG TABLET PO (12:05)
== END 2023-10-31 12:46 | disposition home or self-care (01) ==
PROVIDERS: Emergency Provider Emergency Medicine Emergency Medical Services; PCP Family Medicine
DX: Z71.1 Person with feared health complaint in whom no diagnosis is made (principal)
CPT/HCPCS: 99283; 99284; A9270

== ENCOUNTER 2024-02-22 12:03 | Emergency (ER) | payer MEDICARE, BC, SELFPAY ==
[2024-02-22] VITALS (15 sets, daily range): BP systolic 146–198; BP diastolic 65–99; PULSE 60–98; RESP 18; TEMP 36.7; O2SAT 96–98; BMI 21.0
--- NOTE | 2024-02-22 12:17 | CRLHL7_ITS ---
For Patients: As a result of the Century Cures Act, medical imaging exams and procedure reports are released immediately into your electronic medical record. You may view this report before your referring provider. If you have questions, please contact your health care provider. Indication: : Cough shortness of breath TECHNIQUE: Single-view chest. FINDINGS: Left perihilar subtle opacities could represent infiltrate. No effusion or pneumothorax. Would recommend follow-up imaging to ensure resolution. Dictated by Rosalba Worley MD @ 02/22/2024 1:45:45 PM (Electronically Signed)
--- NOTE | 2024-02-22 12:18 | ED.CHESTPAIN ---
HPI - Chest Pain General Chief Complaint: Chest Pain Stated Complaint: chest pain, shaking, sweating Time Seen by Provider: 02/22/24 12:05 History of Present Illness HPI narrative: Patient is a 88-year-old woman who was about fixed launch when she was struck by a significant overwhelming sense of impending doom with palpitations tremor and sweatiness. Patient had angiogram within the last week but no stenting was done. They were investigating her tricuspid valve. Patient has had no overt chest pain. She has had no nausea no vomiting no fevers. Had no lower extremity edema no rashes. She has otherwise been in her usual state of health. She has a somewhat complex history of valvular heart disease pulmonary edema myasthenia gravis hypertension and congestive heart failure. She became more alarmed as her blood pressure was noted to be elevated at home. Related Data Home Medications ?Medication ?Instructions ?Recorded ?Confirmed levothyroxine 100 mcg tablet 100 mcg PO DAILY 06/09/23 11/22/23 omeprazole 20 mg capsule,delayed 20 mg PO DAILY 06/09/23 11/22/23 release acetaminophen 325 mg tablet 650 mg PO Q6H PRN 10/07/23 11/22/23 calcium carbonate (Calcium 500) 500 mg PO DAILY 10/07/23 11/22/23 calcium carbonate (Tums) 200 mg PO TID PRN 10/07/23 11/22/23 cholecalciferol (vitamin D3) 25 25 mcg PO DAILY 10/07/23 11/22/23 mcg (1,000 unit) capsule (Vitamin D3) multivitamin (One Daily 1 tab PO DAILY 10/07/23 11/22/23 Multivitamin tablet) pyridostigmine bromide 60 mg tablet 60 mg PO 3XD 10/07/23 11/22/23 Previous Rx's ?Medication ?Instructions ?Recorded apixaban 5 mg tablet (Eliquis) 5 mg PO BID 30 days #60 tabs 10/10/23 furosemide 40 mg tablet 40 mg PO DAILY@0800 30 days #30 10/10/23 tabs amiodarone 200 mg tablet 400 mg (2 x 200 mg) PO BID #60 tabs 10/16/23 Allergies Allergy/AdvReac Type Severity Reaction Status Date / Time cortisone AdvReac Intermediate Verified 11/22/23 11:41 oxycodone AdvReac Intermediate Verified 11/22/23 11:41 Sulfa (Sulfonamide AdvReac Intermediate Verified 11/22/23 11:41 Antibiotics) Review of Systems Status of ROS Reports: 10 or more systems reviewed and unremarkable except as noted in History and below [facility] Medical History Subretinal hemorrhage ?H35.60 - Retinal hemorrhage, unspecified eye (ICD-10) 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 (ICD-10) Essential hypertension ?I10 - Essential (primary) hypertension (ICD-10) Myasthenia gravis ?G70.00 - Myasthenia gravis without (acute) exacerbation (ICD-10) Hypothyroidism ?E03.9 - Hypothyroidism, unspecified (ICD-10) Diverticulosis ?K57.90 - Diverticulosis of intestine, part unspecified, without perforation or abscess without bleeding (ICD-10) Surgical History H/O vitrectomy ?Z98.890 - Other specified postprocedural states (ICD-10) History of thymectomy ?Z90.89 - Acquired absence of other organs (ICD-10) Hx of appendectomy ?Z90.49 - Acquired absence of other specified parts of digestive tract (ICD-10) H/O thyroidectomy ?E89.0 - Postprocedural hypothyroidism (ICD-10) Social History Narrative: Lives with , Maury, of 60+ year. He is healthcare power of assistant city attorney. Secondary healthcare power of assistant city attorney is her son Jose. Code status is DNR. She does not smoke. She does not drink alcohol What is your current living situation?: I presently have a place to live Problems where you live: no known problems Problems where you live details: N/A In the past 12 months, utilities in danger of being shut off: no In past 12 months, lack of transportation kept you from medical appts, meetings, work, or getting things needed for daily living: no In the past 12 mos, have been you worried that your food would run out before you had money to buy more?: never true In the past 12 mos, the food you bought just didn't last and you didn't have money to buy more?: never true Highest level of school completed/degree received: some college, no degree Smoking Status: Never smoker Do you use any of these nicotine containing products: None Second hand tobacco smoke exposure: Yes (history) How often do you have a drink containing alcohol: never How often do you have six or more drinks on one occasion: Never AUDIT-C Alcohol total score: 0 Non-prescribed substance use: denies use Caffeine: Yes (coffee daily) Are you now , , , , never or living with a partner: Social isolation score (0-1 are the most socially isolated patients): 1 How often does anyone, including family, friends and others, physically hurt you: never How often does anyone, including family, friends and others, insult or talk down to you: never How often does anyone, including family, friends and others, threaten you with harm: never How often does anyone, including family, friends and others, scream or curse at you: never service: No Exam Narrative Exam Narrative: EXAM GENERAL: Patient appears very anxious. EYES: No scleral icterus. LYMPH: No supraclavicular or cervical lymphadenopathy. SKIN: Visible skin seen during exam normal or with benign process only. EXT: No dependent lower extremity pedal edema. HEART: Regular rate with 2/6 systolic murmur. LUNGS: Clear to auscultation bilaterally with no crackles or wheezes. ABD: Soft, non tender, non distended. PSYCH: Good eye contact, speech is not pressured. Const Vital Signs, click to edit/add: Vital Signs - 24 hr 02/22/24 12:19 02/22/24 12:20 02/22/24 12:21 Temperature 98.1 F Pulse Rate 83 82 Pulse Rate [Pulse Oximeter] 98 Respiratory Rate 18 Blood Pressure 198/99 H Blood Pressure [Left Upper Arm] 198/99 H Pulse Oximetry 98 98 96 Oxygen Delivery Method Room Air 02/22/24 12:30 02/22/24 13:00 02/22/24 13:02 Temperature Pulse Rate 73 67 68 Pulse Rate [Pulse Oximeter] Respiratory Rate Blood Pressure 156/75 H Blood Pressure [Left Upper Arm] Pulse Oximetry 97 98 98 Oxygen Delivery Method 02/22/24 13:30 02/22/24 13:32 02/22/24 14:00 Temperature Pulse Rate 67 68 67 Pulse Rate [Pulse Oximeter] Respiratory Rate Blood Pressure 162/76 H Blood Pressure [Left Upper Arm] Pulse Oximetry 98 97 98 Oxygen Delivery Method 02/22/24 14:02 Temperature Pulse Rate 65 Pulse Rate [Pulse Oximeter] Respiratory Rate Blood Pressure 156/70 H Blood Pressure [Left Upper Arm] Pulse Oximetry 98 Oxygen Delivery Method Course Course ED Course: D-dimer troponin CBC basic metabolic panel chest x-ray EKG ordered. Will also add on a UA and BNP. Vital Signs Vital signs: Initial Vital Signs Pulse Rate 83 02/22/24 12:19 Blood Pressure 198/99 H 02/22/24 12:19 Blood Pressure Mean 132 H 02/22/24 12:19 Pulse Oximetry 98 02/22/24 12:19 Vital Signs Pulse Rate 83 02/22/24 12:19 Blood Pressure 198/99 H 02/22/24 12:19 Pulse Oximetry 98 02/22/24 12:19 Temperature 98.1 F 02/22/24 12:21 Pulse Rate 65 02/22/24 14:02 Respiratory Rate 18 02/22/24 12:21 Blood Pressure 156/70 H 02/22/24 14:02 Pulse Oximetry 98 02/22/24 14:02 Oxygen Delivery Method Room Air 02/22/24 12:21 MDM - Chest Pain MDM Narrative Medical decision making narrative: Patient is an 88-year-old woman who presents with shakiness shortness of breath general malaise and fatigue. She is under quite a bit of stress. EKG upon my review is unremarkable chest x-ray upon my review is unremarkable there is some question of maybe early infiltrate. This is not fit clinically she is afebrile with normal white blood cell count. On D-dimer is negative troponin negative x2 electrolytes are unremarkable BNP is reasonable. This time patient is feeling much better she agrees that she is under quite a bit of stress I do not find any significant pathology. She does have underlying valvular heart disease as outlined in her medical record. Please best course of action at this time is to provide reassurance and have her continue current medications and follow-up with her doctor this coming week. Differential diagnosis includes but not limited to acute myocardial infarction unstable angina congestive heart failure pneumonia bronchitis viral syndrome. Lab Data Labs: Lab Results 07/02/22/24 02/22/24 Range/Units 12:31 12:40 14:15 WBC 7.46 (4.50-11.00) K/uL RBC 4.93 (4.00-5.20) m/uL Hgb 14.9 (12.0-16.0) gm/dL Hct 47.8 (33.0-51.0) % MCV 97 (80-100) fL MCH 30 (26-34) pg MCHC 31 L (32-36) gm/dL RDW Coeff of Theodore 15.2 (11.5-15.5) % Plt Count 151 (140-440) K/uL Neut % (Auto) 42.1 (42.0-72.0) % Lymph % (Auto) 43.3 (20-44) % [place] % (Auto) 9.8 (0.0-11.0) % Eos % (Auto) 3.9 (0.0-7.0) % Baso % (Auto) 0.4 (0.0-3.0) % Neut # (Auto) 3.14 (1.7-7.0) K/uL Lymph # (Auto) 3.23 H (0.90-2.90) K/uL [place] # (Auto) 0.70 (0.00-0.90) K/UL Eos # (Auto) 0.29 (0.00-0.50) K/uL Baso # (Auto) 0.03 (0.00-0.30) K/uL Abs Immat Gran (auto) 0.04 (0.00-0.30) K/uL Imm/Tot Granulo (auto) 0.5 % D-Dimer Quant (PE/DVT) 0.47 (0.00-0.50) ug/ml Sodium 140 (135-149) mmol/L Potassium 3.8 (3.6-5.1) mmol/L Chloride 107 (96-114) mmol/L Carbon Dioxide 33 H (20-32) mmol/L Anion Gap 0 L (7-15) mEq/L BUN 19 (7-30) mg/dL Creatinine 1.1 (0.5-1.5) mg/dL Estimated Creat Clear 34.17 Estimated GFR 49 ml/min Glucose 111 (60-115) mg/dL Calcium 8.9 (8.4-10.6) mg/dL Troponin I < 0.01 L < 0.01 L (0.01-0.04) ng/mL NT-Pro-B Natriuret Pep 521 pg/mL Urine Color Light yellow (Yellow) Urine Appearance Clear (Clear) Urine pH 7.0 (5.0-8.5) Ur Specific [place] 1.015 (1.000-1.030) Urine Protein Negative (Negative) Urine Glucose (UA) 1+ A (Negative) Urine Ketones Negative (Negative) Urine Blood Negative (Negative) Urine Nitrite Negative (Negative) Urine Bilirubin Negative (Negative) Urine Urobilinogen 0.2 (0.2-1.0) Ur Leukocyte Esterase Negative (Negative) Discharge Plan Discharge Clinical Impression: Palpitations Patient Disposition: Home, Self-Care Condition: Stable Instructions: Heart Palpitations (ED) Additional Instructions: Continue current medications. Follow-up with your doctor this coming week. Activity Level: No Restrictions Discharge Diet: Regular Prescriptions: No Action levothyroxine 100 mcg tablet 100 mcg PO DAILY omeprazole 20 mg capsule,delayed release(DR/EC) 20 mg PO DAILY pyridostigmine bromide 60 mg tablet 60 mg PO 3XD calcium carbonate [Calcium 500] 500 mg calcium (1,250 mg) tablet,chewable 500 mg PO DAILY cholecalciferol (vitamin D3) [Vitamin D3] 25 mcg (1,000 unit) capsule 25 mcg PO DAILY calcium carbonate [Tums] 200 mg calcium (500 mg) tablet,chewable 200 mg PO TID PRN acetaminophen 325 mg tablet 650 mg PO Q6H PRN multivitamin [One Daily Multivitamin] Tablet 1 tab PO DAILY furosemide 40 mg Tablet 40 mg PO DAILY@0800 30 Days Qty: 30 2RF Eliquis 5 mg Tablet 5 mg PO BID 30 Days Qty: 60 2RF amiodarone 200 mg Tablet 400 mg PO BID Qty: 60 0RF Follow Up/Referrals: Starla Greene MD [Primary Care Provider] - Stand Alone [facility] Info Instructions
[2024-02-22 12:51] LABS: Appearance Urine Clear (Clear); Bilirubin Urine Negative (Negative); Blood Urine Negative (Negative); Color Urine Light yellow (Yellow); Glucose Urine 1+ (Negative); Ketones Urine Negative (Negative); Leukocyte Esterase Urine Negative (Negative); Nitrite Urine Negative (Negative); Protein Urine Negative (Negative); Specific Gravity Urine 1.015 (1.000-1.030); Urobilinogen Urine 0.2 (0.2-1.0)
[2024-02-22 12:54] LABS: Basophils Absolute Auto 0.03 K/uL (0.00-0.30); Basophils Percent Auto 0.4 % (0.0-3.0); Eosinophils Absolute Auto 0.29 K/uL (0.00-0.50); Eosinophils Percent Auto 3.9 % (0.0-7.0); Hematocrit 47.8 % (33.0-51.0); Hemoglobin* 14.9 gm/dL (12.0-16.0); Immature Granulocytes Abs Auto 0.04 K/uL (0.00-0.30); Immature Granulocytes Pct Auto 0.5 %; Lymphocytes Absolute Auto 3.23 K/uL (0.90-2.90); Lymphocytes Percent Auto 43.3 % (20-44); Mean Corpuscular HGB Conc 31 gm/dL (32-36); Mean Corpuscular Hemoglobin 30 pg (26-34); Mean Corpuscular Volume 97 fL (80-100); Monocytes Percent Auto 9.8 % (0.0-11.0); Neutrophils Absolute Auto 3.14 K/uL (1.7-7.0); Neutrophils Percent Auto 42.1 % (42.0-72.0); Platelet Count* 151 K/uL (140-440); RDW Coefficient of Variation % 15.2 % (11.5-15.5); Red Blood Count 4.93 m/uL (4.00-5.20); White Blood Count* 7.46 K/uL (4.50-11.00)
[2024-02-22 12:59] LABS: Chloride* 107 mmol/L (96-114)
[2024-02-22 13:00] LABS: Potassium* 3.8 mmol/L (3.6-5.1); Sodium* 140 mmol/L (135-149)
[2024-02-22 13:02] LABS: Creatinine* 1.1 mg/dL (0.5-1.5); Est. Creatinine Clearance* 34.17; Estimated Glomerular Filt Rate 49 ml/min
[2024-02-22 13:03] LABS: Anion Gap 0 mEq/L (7-15); Blood Urea Nitrogen* 19 mg/dL (7-30); Calcium* 8.9 mg/dL (8.4-10.6); Carbon Dioxide* 33 mmol/L (20-32); D Dimer Quantitative* 0.47 ug/ml (0.00-0.50); Glucose* 111 mg/dL (60-115)
[2024-02-22 13:11] LABS: Slide Review Reflex No
[2024-02-22 13:15] LABS: NT Pro B Type NatriureticPept* 521 pg/mL
[2024-02-22 13:16] LABS: Troponin I* < 0.01 ng/mL (0.01-0.04)
[2024-02-22 14:53] LABS: Troponin I* < 0.01 ng/mL (0.01-0.04)
== END 2024-02-22 15:10 | disposition home or self-care (01) ==
PROVIDERS: Emergency Provider Internal Medicine; PCP Family Medicine
DX: R00.2 Palpitations (principal)
CPT/HCPCS: 36415; 71045; 80048; 81003; 83880; 84484; 85025; 85379; 99283; 99284

== ENCOUNTER 2025-03-09 10:00 | Outpatient (RCR) | payer MEDICARE, BC, SELFPAY | END 2025-03-09 11:26 | disposition home or self-care (01) | PROVIDERS: PCP Family Medicine; Visit Provider Family Medicine | DX: M79.644 Pain in right finger(s) (principal); M25.561 Pain in right knee; Z51.89 Encounter for other specified aftercare | CPT/HCPCS: 97035; 97110; 97112; 97140; 97161; 97165; 97530; L3808; X5282 ==